=== PATIENT | male | born 1985 | race Caucasian/White ===

== ENCOUNTER 2021-04-05 11:17 | Inpatient (IN) ==
[2021-04-05] MEDS ORDERED: ONDANSETRON INJ 2 MG/ML 2 ML VIAL IV STA (12:15)
[2021-04-05] MEDS ORDERED: ACETAMINOPHEN 500 MG TAB PO STA (12:15)
[2021-04-05] MEDS ORDERED: SODIUM CHLORIDE 0.9% 1000ML 500 ML IV ONE (12:15)
[2021-04-05] MEDS ORDERED: dexAMETHasone**PF** 10 MG/ML VIAL IV ONE (12:15)
--- NOTE | 2021-04-05 12:31 | XRay Report ---
XR chest 1V portable CLINICAL HISTORY: SOB TECHNIQUE: Single frontal radiograph of the chest was obtained. Comparison: Comparison is made to chest one view 04/03/2021 FINDINGS: No lines and tubes are seen. The cardiomediastinal silhouette is normal. Multifocal airspace opacitie s are seen. Lungs are underinflated. No evidence of pleural effusion or pneumothorax. IMPRESSION: Multifocal airspace opacities may reflect atelectasis, pneumonia, and/or aspiration. ACT 112: Negative or not required by law. Electronically signed by: Edwin Mueller M.D. 04/05/2021 12:29 PM
--- NOTE | 2021-04-05 12:48 | Emergency Department Note ---
Impression & Plan Hypoxia, Pneumonia due to COVID-19 virus ED Provider Note NAME: CARLOS MA AGE: 35 SEX: M : 1985 ARRIVES VIA: Ambulance INFORMANT: Patient, ED PROVIDER(S): Frantz Esquivel MD Chief Complaint: Shortness of breath, low oxygen saturation HPI: Patient does present from home as this is the patient's third visit secondary to COVID-19. The patient denies any fevers or chills but has had decreased appetite and associated frontal headache that is achy and nonradiating. Patient denies any recent falls or trauma. The patient does not take any blood thinners. The patient states that when he woke up this morning he went to use the restroom and upon returning to his bed he was fairly short of breath and noticed his oxygen saturation to be 80%. The patient is had mild cough. Patient denies smoking. Patient is not vaccinated for COVID-19 believes he likely contracted it from his girlfriend works at [employer] and had advised him to get vaccinated. Patient denies any prior history of DVT or PE. The patient has any lower extremity swelling. The patient denies any chest pain or abdominal pain. Patient denies loss of taste or smell. ROS: See HPI for pertinent positives and negatives. A total of 10 systems were reviewed and otherwise negative. Past medical history: See below Surgical history: See below Social history: See below Physical Exam: GENERAL: NAD, wearing glasses, wearing a mask, non-toxic. EYE EXAM: Normal conjunctiva. PERRL, no anisocoria and EOM's grossly intact w/o pain. NECK: Supple, no nuchal rigidity, no adenopathy, non-tender. No signs of meningismus. LUNGS: Scant crackles throughout. Normal chest wall mechanics. HEART: NSR, no MRG. ABDOMEN: Abdomen soft, non-tender, normo-active bowel sounds, no masses, no rebound or guarding. BACK: No CVA TTP. SKIN: No rashes and no bruising. UPPER EXTREMITIES: Upper extremities are grossly normal. LOWER EXTREMITIES: Grossly normal, no edema. Negative Homans' sign bilaterally. NEURO EXAM: A&O x3, cranial nerves II-XII grossly intact, normal speech, moves all 4 extremities on command w/o issue. Differential diagnoses: Reactive airway disease, pneumonia, pneumothorax, COPD, CHF, infections, cardiac ischemia, pulmonary embolism, musculoskeletal, gastrointestinal, as well as other pathologies. Course: Patient was seen and evaluated the bedside. Full history physical exam was performed. EKG interpreted by me Sinus bradycardia, rate of 52, normal intervals, normal axis, T wave inversion in lead III not contiguous leads, no obvious ST elevations. Imaging Studies: See Below Cardiac monitoring: An order was placed for continuous cardiac monitoring. The monitor shows a rate of 62 with sinus rhythm. MDM: Patient was seen due to concern for shortness of breath. The patient was seen in a subwait area as there were no beds in which the patient could be seen at the time that he was seen. The patient was initially on 3 L nasal cannula. Patient has a normal white count H&H and platelet count. Kidney function is unremarkable. The patient's troponin is not detectable. Mild elevations in LFTs. The patient did receive dexamethasone 6 mg and IV fluids. On subsequent reassessment patient states that his headache had improved. The patient also received Tylenol and Zofran. Patient is not meningitic or encephalopathic. Chest x-ray does show likely multifocal pneumonia. Given the patient's u nvaccinated status and hypoxemia at home believe the patient would benefit from inpatient treatment at this time. I did speak with the on-call hospitalist and patient was admitted to the medicine service. Critical Care: I have personally spent 36 minutes of critical care time in direct management of this patient. This includes bedside care, interpretation of diagnostic studies, and testing, discussion with consultants, patient, and family members, and other require inpatient management activities. This 36 minutes is in excess of all separately billable procedures. Past Med/Surg History Medical History No significant past medical history Surgical History No significant past surgical history Family History Denies family history of Ovarian cancer Prostate cancer Myocardial infarction Breast cancer Colorectal cancer Social History Smoking Status: Never smoker Second Hand Exposure: No; Do You Dip or Chew Tobacco: No; Tobacco Cessation Education Requested by Patient: No Hx Alcohol Use: No Hx Substance Use: No Preferred Language: Sami Communication Ability: Effective Visual Impairment: No Limitations Hearing Ability: Normal Transfer And Pumphouse Operator Required: No Beliefs That Will Affect Care: None marital status: Current Living Situation: Significant Other Other Information That Helps Us Care for You: No Feels Safe at Home: Yes Safety Concerns: Feels Safe At This Time Assistive Devices: None Allergies Allergies Allergy/AdvReac Type Severity Reaction Status Date / Time bee venom protein (honey bee) Allergy Mild Unknown Unverified 04/03/21 16:27 Home Meds Home Medications Medication Instructions Recorded Confirmed naproxen 250 mg tablet 250 mg PO BID PRN 02/25/19 04/05/21 omeprazole 20 mg tablet,delayed 20 mg PO DAILY 02/25/19 04/05/21 release Previous Rx's Medication Instructions Recorded albuterol sulfate 90 mcg/actuation 2 inh INHALATION Q6H PRN #6.7 g 03/31/21 aerosol inhaler (Ventolin HFA) ondansetron 4 mg disintegrating 4 mg PO Q6H PRN #15 tab 03/31/21 tablet Results & Data (ED) Vital Signs Vital Signs - 24 hr 04/05/21 11:51 Temperature 37.1 C Temperature Source Temporal Artery Scan Pulse Rate 95 H Pulse Rhythm Regular Pulse Strength Normal Respiratory Rate 22 Respiratory Effort / Characteristics Non-Labored Spontaneous Respiratory Depth Normal Respiratory Pattern Regular Blood Pressure 112/76 Blood Pressure Mean 88 Blood Pressure Position Sitting Pulse Oximetry 97 Oxygen Delivery Method Nasal Cannula Oxygen Flow Rate 3 Sepsis Recent Fever Within 48 Hours No Sepsis New/Unexplained Change in Mental Status No Sepsis Action Taken by Nursing No Action Required Home Medications Current Medication List: was personally reviewed by me Laboratory Data Attestation: I reviewed the patient's lab results. Result diagrams: 04/05/21 14:32 04/05/21 14:32 Lab Results 04/05/21 04/05/21 04/05/21 Range/Units 14:32 14:32 14:32 WBC 8.70 (4.8-10.8) K/uL RBC 5.40 (4.7-6.1) M/uL Hgb 15.0 (14.0-18.0) g/dL Hct 45.7 (42-52) % MCV 84.6 (80-100) fL MCH 27.8 (25-34) pg MCHC 32.8 (32-36) g/dL RDW Std Deviation 45.7 (36.4-46.3) fL RDW Coeff of Jaxson 14.6 H (11.5-14.5) % Plt Count 213 (130-400) K/uL MPV 11.2 H (7.4-10.4) fL Immature Gran % (Auto) 0.3 % Neut % (Auto) 82.4 % Lymph % (Auto) 10.6 % Moca % (Auto) 6.0 % Eos % (Auto) 0.6 % Baso % (Auto) 0.1 % Neut # (Auto) 7.17 H (1.4-6.5) K/uL Lymph # (Auto) 0.92 L (1.2-3.4) K/uL Moca # (Auto) 0.52 (0.11-0.59) K/uL Eos # (Auto) 0.05 (0-0.5) K/uL Baso # (Auto) 0.01 (0-0.2) K/uL Immature Gran # (Auto) 0.03 H (0.00-0.02) K/uL PT 10.4 (9.0-12.0) Seconds INR 1.0 (0.9-1.1) APTT 26.5 (21.0-31.0) Seconds PTT Ratio 1.0 Sodium 136 (136-145) mmol/L Potassium 4.1 (3.5-5.1) mmol/L Chloride 105 (98-107) mmol/L Carbon Dioxide 25 (21-32) mmol/L Anion Gap 6.0 (3-11) BUN 8 (7-18) mg/dl Creatinine 0.74 (0.6-1.4) mg/dl Est Cr Clr Drug Dosing 194.3 ml/min Est GFR ( Amer) 139.5 ml/min Est GFR (Non-Af Amer) 120.3 ml/min BUN/Creatinine Ratio 11.0 (10-20) Glucose 109 H (70-99) mg/dl Calcium 9.1 (8.5-10.1) mg/dl Magnesium 2.2 (1.8-2.4) mg/dl Total Bilirubin 0.7 (0.2-1) mg/dl AST 48 H (15-37) U/L ALT 97 H (12-78) Alkaline Phosphatase 67 (45-117) U/L Troponin I < 0.015 (0-0.045) ng/ml C-Reactive Protein 6.57 H (0-0.29) mg/dl Total Protein 7.7 (6.4-8.2) gm/dl Albumin 2.6 L (3.4-5.0) gm/dl Globulin 5.1 H (2.5-4.0) gm/dl Albumin/Globulin Ratio 0.5 L (0.9-2) 04/05/21 Range/Units 14:39 WBC (4.8-10.8) K/uL RBC (4.7-6.1) M/uL Hgb (14.0-18.0) g/dL Hct (42-52) % MCV (80-100) fL MCH (25-34) pg MCHC (32-36) g/dL RDW Std Deviation (36.4-46.3) fL RDW Coeff of Jaxson (11.5-14.5) % Plt Count (130-400) K/uL MPV (7.4-10.4) fL Immature Gran % (Auto) % Neut % (Auto) % Lymph % (Auto) % Moca % (Auto) % Eos % (Auto) % Baso % (Auto) % Neut # (Auto) (1.4-6.5) K/uL Lymph # (Auto) (1.2-3.4) K/uL Moca # (Auto) (0.11-0.59) K/uL Eos # (Auto) (0-0.5) K/uL Baso # (Auto) (0-0.2) K/uL Immature Gran # (Auto) (0.00-0.02) K/uL PT (9.0-12.0) Seconds INR (0.9-1.1) APTT (21.0-31.0) Seconds PTT Ratio Sodium (136-145) mmol/L Potassium (3.5-5.1) mmol/L Chloride (98-107) mmol/L Carbon Dioxide (21-32) mmol/L Anion Gap (3-11) BUN (7-18) mg/dl Creatinine (0.6-1.4) mg/dl Est Cr Clr Drug Dosing ml/min Est GFR ( Amer) ml/min Est GFR (Non-Af Amer) ml/min BUN/Creatinine Ratio (10-20) Glucose (70-99) mg/dl Calcium (8.5-10.1) mg/dl Magnesium (1.8-2.4) mg/dl Total Bilirubin (0.2-1) mg/dl AST (15-37) U/L ALT (12-78) Alkaline Phosphatase (45-117) U/L Troponin I (0-0.045) ng/ml C-Reactive Protein Cancelled (0-0.29) mg/dl Total Protein (6.4-8.2) gm/dl Albumin (3.4-5.0) gm/dl Globulin (2.5-4.0) gm/dl Albumin/Globulin Ratio (0.9-2) Administered Medications Enoxaparin Sodium (Enoxaparin Inj 40 Mg/0.4 Ml Syr) 40 mg SQ HS MELANIE Stop: 05/05/21 23:43 Last Admin: 04/06/21 00:46 Dose: Not Given Documented by: [id number] Discontinued Medications Acetaminophen (Acetaminophen 500 Mg Tab) 1,000 mg PO NOW STA Stop: 04/05/21 12:16 Last Admin: 04/05/21 12:50 Dose: 1,000 mg Documented by: [id number] Dexamethasone Sodium Phosphate (DexamethasonePf 10 Mg/Ml Vial) 6 mg IV NOW ONE Stop: 04/05/21 12:16 Last Admin: 04/05/21 12:50 Dose: 6 mg Documented by: [id number] Sodium Chloride (Nss 1000ml) 500 mls @ 999 mls/hr IV .Q31M ONE Stop: 04/05/21 12:45 Last Infusion: 04/05/21 16:08 Dose: 0 mls/hr Documented by: [id number] Admin: 04/05/21 12:41 Dose: 999 mls/hr Documented by: [id number] Ondansetron HCl (Ondansetron Inj 2 Mg/Ml 2 Ml Vial) 4 mg IV NOW STA Stop: 04/05/21 12:16 Last Admin: 04/05/21 12:49 Dose: 4 mg Documented by: [id number] Imaging Data Radiologist's Impression: Chest X-Ray 04/05/21 11:57 XR chest 1V portable CLINICAL HISTORY: SOB TECHNIQUE: Single frontal radiograph of the chest was obtained. Comparison: Comparison is made to chest one view 04/03/2021 FINDINGS: No lines and tubes are seen. The cardiomediastinal silhouette is normal. Multifocal airspace opacities are seen. Lungs are underinflated. No evidence of pleural effusion or pneumothorax. IMPRESSION: Multifocal airspace opacities may reflect atelectasis, pneumonia, and/or aspiration. ACT 112: Negative or not required by law. Electronically signed by: Edwin Mueller M.D. 04/05/2021 12:29 PM Discharge Plan Visit Data Chief Complaint: Shortness of Breath/Dyspnea ED Provider: Frantz Esquivel Discharge Problem: Hypoxia, Pneumonia due to COVID-19 virus Patient Disposition: Admitted As Inpatient Discharge Instructions Interventions: ED Discharge Assessment Last Done: 04/06/21 01:49
[2021-04-05 14:43] LABS: Basophils # (auto) 0.01 K/uL (0-0.2); Basophils % (auto) 0.1 %; Eosinophils # (auto) 0.05 K/uL (0-0.5); Eosinophils % (auto) 0.6 %; Hematocrit (blood only) 45.7 % (42-52); Immature Granulocytes # (auto) 0.03 K/uL (0.00-0.02); Immature Granulocytes % (auto) 0.3 %; Lymphocytes # (auto) 0.92 K/uL (1.2-3.4); Lymphocytes % (auto) 10.6 %; Mean Corpuscular Hemoglobin 27.8 pg (25-34); Mean Corpuscular Hgb Conc 32.8 g/dL (32-36); Mean Corpuscular Volume 84.6 fL (80-100); Mean Platelet Volume 11.2 fL (7.4-10.4); Monocytes # (auto) 0.52 K/uL (0.11-0.59); Neutrophils # (auto) 7.17 K/uL (1.4-6.5); Neutrophils % (auto) 82.4 %; Platelet Count 213 K/uL (130-400); RDW Coefficient of Variation 14.6 % (11.5-14.5); RDW Standard Deviation 45.7 fL (36.4-46.3)
[2021-04-05 15:02] LABS: Partial Thromboplastin Time 26.5 Seconds (21.0-31.0); Prothrombin Time 10.4 Seconds (9.0-12.0)
[2021-04-05 15:10] LABS: Albumin Level 2.6 gm/dl (3.4-5.0); Blood Urea Nitrogen 8 mg/dl (7-18); Calcium 9.1 mg/dl (8.5-10.1); Carbon Dioxide 25 mmol/L (21-32); Chloride 105 mmol/L (98-107); Creatinine Clr Calc Pharmacy 194.3 ml/min; Est GFR (African American) 139.5 ml/min; Est GFR (Non-African American) 120.3 ml/min; Glucose 109 mg/dl (70-99); Magnesium 2.2 mg/dl (1.8-2.4); Potassium 4.1 mmol/L (3.5-5.1); Sodium 136 mmol/L (136-145)
[2021-04-05 15:25] LABS: Alanine Aminotransferase 97 (12-78); Albumin Globulin Ratio 0.5 (0.9-2); Alkaline Phosphatase 67 U/L (45-117); Aspartate Aminotransferase 48 U/L (15-37); Bilirubin,Total 0.7 mg/dl (0.2-1); Globulin 5.1 gm/dl (2.5-4.0); Total Protein 7.7 gm/dl (6.4-8.2); Troponin I < 0.015 ng/ml (0-0.045)
--- NOTE | 2021-04-05 16:11 | History & Physical Report ---
Date of Service April 05, 2021 Assessment & Plan (1) Pneumonia due to COVID-19 virus: (2) Hypoxia: Plan: -Admit to [facility] -Patient presenting from home with reports of worsening shortness of breath and hypoxia. Symptoms have been present since 03/23. Patient tested positive for COVID-19 on 03/28 via home test and also in the ED on 03/31. -Patient currently requiring 3 L of oxygen via nasal cannula -CXR consistent with COVID-19 pneumonia -Check procalcitonin and CRP -S/p IV dexamethasone 6 mg in the ED, continue with IV dexamethasone 6 mg daily. Given long duration of symptoms, patient currently does not meet criteria for remdesivir. Also given minimal oxygen requirement does not meet criteria for immunomodulator therapy. -Continue supportive care with incentive spirometer, flutter valve, albuterol inhaler, encourage self proning (3) DVT prophylaxis: Plan: -SQ Lovenox History of Present Illness Chief Complaint: Shortness of breath Primary Care Provider: Eddi Shrestha DO 35-year-old male without significant past medical or surgical history who presents the ED for evaluation of shortness of breath. Patient reports he developed cough and shortness of breath on 03/23. Tested positive for COVID-19 on 03/28. Patient reports worsening symptoms since that time. He reports shortness of breath with minimal exertion. Patient has a home pulse oximeter and reports that with ambulation today his oxygen saturations were 80%. His cough has been productive for white/clear sputum. He is unsure if he has been running a fever. No chest pain. Denies lightheadedness, dizziness, diaphoresis, syncopal events. He has had a very poor appetite and intermittent nausea however no vomiting, abdominal pain, diarrhea. Denies urinary symptoms. In the ED, patient is requiring 3 L of oxygen via nasal cannula. CXR is showing multifocal pneumonia. Labs are unremarkable. Patient was given Tylenol, IV dexamethasone 6 mg, IV Zofran, IVF. Allergies Allergy/AdvReac Type Severity Reaction Status Date / Time bee venom protein (honey bee) Allergy Mild Unknown Unverified 04/03/21 16:27 Home Medications Medication Instructions Recorded Confirmed Type naproxen 250 mg tablet 250 mg PO BID PRN 02/25/19 04/05/21 History omeprazole 20 mg tablet,delayed 20 mg PO DAILY 02/25/19 04/05/21 History release albuterol sulfate 90 mcg/actuation 2 inh INHALATION Q6H PRN #6.7 g 03/31/21 04/05/21 Rx aerosol inhaler (Ventolin HFA) ondansetron 4 mg disintegrating 4 mg PO Q6H PRN #15 tab 03/31/21 04/05/21 Rx tablet Past Med/Surg History Medical History No significant past medical history Surgical History No significant past surgical history Family History Denies family history of Ovarian cancer Prostate cancer Myocardial infarction Breast cancer Colorectal cancer Social History Smoking Status: Never smoker Hx Alcohol Use: No Preferred Language: [place] Visual Impairment: No Limitations Hearing Ability: Normal marital status: Feels Safe at Home: Yes Review of Systems Review of Systems: ROS per HPI, all other systems reviewed and negative Physical Exam Constitutional: WD/WN, vitals as above + obese Eyes: PERRL, conjunctivae normal, anicteric sclerae ENMT: external ear and nose normal, oropharynx normal Respiratory: normal respiratory effort; no respiratory distress Auscultation: + diminished lung sounds Cardiovascular: Rate/Rhythm: regular rate and regular rhythm Vessels: normal peripheral pulses Extremities: no edema Gastrointestinal (Abdomen): normal bowel sounds, soft, nontender, no hepatosplenomegaly Musculoskeletal: no cyanosis or clubbing, extremities motor strength 5/5 Skin: no rashes, warm and dry Neurologic: PERRL, EOMI, accommodation nl, no face palsy, no dysarthria Psychiatric: A+Ox3, euthymic affect Results & Data Results & Data ([facility]) Vital Signs (Past 12 Hours) Vital Signs Temp Pulse Resp BP Pulse Ox 04/05/21 11:51 37.1 C 95 H 22 112/76 97 Laboratory Results Short CBC 04/05/21 Range/Units 14:32 WBC 8.70 (4.8-10.8) K/uL Hgb 15.0 (14.0-18.0) g/dL Hct 45.7 (42-52) % Plt Count 213 (130-400) K/uL BMP 04/05/21 14:32 Sodium 136 Potassium 4.1 Chloride 105 Carbon Dioxide 25 BUN 8 Creatinine 0.74 Glucose 109 H Calcium 9.1 Cardiac Enzymes 04/05/21 Range/Units 14:32 Troponin I < 0.015 (0-0.045) ng/ml Liver Function 04/05/21 Range/Units 14:32 Total Bilirubin 0.7 (0.2-1) mg/dl AST 48 H (15-37) U/L ALT 97 H (12-78) Alkaline Phosphatase 67 (45-117) U/L Albumin 2.6 L (3.4-5.0) gm/dl Diagnostic Findings Chest X-Ray 04/05/21 11:57 XR chest 1V portable CLINICAL HISTORY: SOB TECHNIQUE: Single frontal radiograph of the chest was obtained. Comparison: Comparison is made to chest one view 04/03/2021 FINDINGS: No lines and tubes are seen. The cardiomediastinal silhouette is normal. Multifocal airspace opacities are seen. Lungs are underinflated. No evidence of pleural effusion or pneumothorax. IMPRESSION: Multifocal airspace opacities may reflect atelectasis, pneumonia, and/or aspiration. ACT 112: Negative or not required by law. Electronically signed by: Edwin Mueller M.D. 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
[2021-04-05 16:44] LABS: C Reactive Protein 6.57 mg/dl (0-0.29)
[2021-04-05] MEDS ORDERED: ALBUTEROL HFA 8 GM INHALER INH PRN (23:44)
[2021-04-05] MEDS ORDERED: ACETAMINOPHEN 325 MG TAB PO PRN (23:44)
[2021-04-05] MEDS ORDERED: ONDANSETRON INJ 2 MG/ML 2 ML VIAL IV PRN (23:44)
[2021-04-06] MEDS: ENOXAPARIN INJ 40 MG/0.4 ML SYR SQ SCH ×2 (00:46→19:24)
[2021-04-06 07:14] LABS: Basophils # (auto) 0.01 K/uL (0-0.2); Basophils % (auto) 0.1 %; Hematocrit (blood only) 44.4 % (42-52); Hemoglobin 14.7 g/dL (14.0-18.0); Immature Granulocytes # (auto) 0.03 K/uL (0.00-0.02); Immature Granulocytes % (auto) 0.4 %; Lymphocytes # (auto) 1.09 K/uL (1.2-3.4); Lymphocytes % (auto) 14.3 %; Mean Corpuscular Hemoglobin 27.9 pg (25-34); Mean Corpuscular Hgb Conc 33.1 g/dL (32-36); Mean Corpuscular Volume 84.3 fL (80-100); Mean Platelet Volume 11.6 fL (7.4-10.4); Monocytes # (auto) 0.69 K/uL (0.11-0.59); Neutrophils # (auto) 5.81 K/uL (1.4-6.5); Neutrophils % (auto) 76.2 %; Platelet Count 231 K/uL (130-400); RDW Coefficient of Variation 14.4 % (11.5-14.5); RDW Standard Deviation 44.5 fL (36.4-46.3); Red Blood Count 5.27 M/uL (4.7-6.1); White Blood Count 7.63 K/uL (4.8-10.8)
[2021-04-06 07:35] LABS: Albumin Level 2.5 gm/dl (3.4-5.0); BUN Creatinine Ratio 16.1 (10-20); Calcium 9.5 mg/dl (8.5-10.1); Creatinine Clr Calc Pharmacy 217.8 ml/min; Est GFR (African American) 146.2 ml/min; Est GFR (Non-African American) 126.1 ml/min; Magnesium 2.4 mg/dl (1.8-2.4); Potassium 4.2 mmol/L (3.5-5.1)
[2021-04-06 07:38] LABS: Albumin Globulin Ratio 0.5 (0.9-2); Bilirubin,Total 0.8 mg/dl (0.2-1); C Reactive Protein 7.18 mg/dl (0-0.29); Globulin 5.2 gm/dl (2.5-4.0); Phosphorus 3.7 mg/dl (2.5-4.9); Total Protein 7.7 gm/dl (6.4-8.2)
[2021-04-06] MEDS: PANTOprazole 40 MG TAB PO SCH (08:56)
[2021-04-06] MEDS: dexAMETHasone 6 MG in SYRINGE 0 ML IV SCH (10:25)
--- NOTE | 2021-04-06 11:40 | Electrocardiogram Report ---
Test Reason : Blood Pressure : / mmHG Vent. Rate : 052 BPM Atrial Rate : 052 BPM P-R Int : 146 ms QRS Dur : 104 ms QT Int : 450 ms P-R-T Axes : 014 002 013 degrees QTc Int : 418 ms Sinus bradycardia RSR' or QR pattern in V1 suggests right ventricular conduction delay Otherwise normal ECG When compared with ECG of 03-APR-2021 13:14, Vent. rate has decreased BY 26 BPM Confirmed by Nawaf May ([id number]) on 04/06/2021 11:39:28 AM Referred By: REFERRED SELF Confirmed By:Nawaf May
[2021-04-06] MEDS ORDERED: FUROSEMIDE 40 MG/4 ML VIAL IV ONE (13:46)
--- NOTE | 2021-04-06 16:23 | Hospitalist Progress Note ---
Date of Service April 06, 2021 Assessment & Plan (1) Pneumonia due to COVID-19 virus: Plan: -Not vaccinated for COVID-19 -Patient presenting from home with reports of worsening shortness of breath and hypoxia. Symptoms have been present since 03/23. Patient tested positive for COVID-19 on 03/28 via home test and also in the ED on 03/31. -Patient currently requiring 3 L of oxygen via nasal cannula -CXR consistent with COVID-19 pneumonia -Check procalcitonin-less than 0.05 and CRP-7.18 -S/p IV dexamethasone 6 mg in the ED, continue with IV dexamethasone 6 mg daily. Given long duration of symptoms, patient currently does not meet criteria for remdesivir. Also given minimal oxygen requirement does not meet criteria for immunomodulator therapy. -Continue supportive care with incentive spirometer, flutter valve, albuterol inhaler, encourage self proning -Clinically better and has been requiring up to 1 L of oxygen to maintain saturation at rest -Advised to ambulate in the room -We will do it to a stable O2 saturation test tomorrow and if stable can be sent home (2) Hypoxia: Plan: As above (3) DVT prophylaxis: Plan: -SQ Lovenox Admission and Anticipated Discharge Date Admission Date: April 05, 2021 Subjective 04/06/2021 The patient was seen and examined in the Covid unit He has been doing a little better and requiring about 1 L of oxygen to maintain saturation Remains generally weak-was advised to move around in the room Review of Systems Review of Systems: All systems reviewed and are unremarkable except as noted below Respiratory: Minimal shortness of breath at rest Physical Exam Physical Exam: Lying in bed comfortably Constitutional: well developed, well nourished and + morbidly obese Eyes: PERRL, conjunctivae normal, anicteric sclerae ENMT: external ear and nose normal, oropharynx normal Neck: trachea midline, no thyromegaly Respiratory: + respiratory distress (Minimal shortness of breath at rest) Auscultation: + diminished lung sounds Cardiovascular: Rate/Rhythm: regular rate and regular rhythm; not tachycardic Heart Sounds: normal S1 and normal S2; no murmur Extremities: + edema (Trace to 1+ edema bilaterally) Gastrointestinal (Abdomen): Inspection/Auscultation: normal bowel sounds; abdomen not distended Percussion/Palpation: abdomen soft; abdomen nontender Musculoskeletal: No acute arthritis involving any joint Neurologic: Alert, awake and oriented x3. No focal sensory or no motor deficit appreciated Lymphatic: no cervical or axillary lymphadenopathy Results & Data Results & Data ([facility]) Vital Signs (Past 12 Hours) Vital Signs Temp Pulse Resp BP Pulse Ox 04/06/21 15:24 36.7 C 79 18 117/68 93 04/06/21 14:06 94 04/06/21 07:19 36.5 C 82 18 133/84 95 Laboratory Results Short CBC 04/06/21 Range/Units 06:18 WBC 7.63 (4.8-10.8) K/uL Hgb 14.7 (14.0-18.0) g/dL Hct 44.4 (42-52) % Plt Count 231 (130-400) K/uL BMP 04/06/21 06:18 Sodium 138 Potassium 4.2 Chloride 107 Carbon Dioxide 24 BUN 11 Creatinine 0.66 Glucose 129 H Calcium 9.5 Liver Function 04/06/21 Range/Units 06:18 Total Bilirubin 0.8 (0.2-1) mg/dl AST 50 H (15-37) U/L ALT 106 H (12-78) Alkaline Phosphatase 67 (45-117) U/L Albumin 2.5 L (3.4-5.0) gm/dl Medications Administered Current Inpatient Medications Acetaminophen (Acetaminophen 325 Mg Tab) 650 mg PO Q4H PRN PRN Reason: pain/fever Stop: 05/05/21 23:43 Albuterol (Albuterol Hfa 8 Gm Inhaler) 2 puffs INH Q4H PRN PRN Reason: shortness of breath Stop: 05/05/21 23:43 Enoxaparin Sodium (Enoxaparin Inj 40 Mg/0.4 Ml Syr) 40 mg SQ HS MELANIE Stop: 05/05/21 23:43 Last Admin: 04/06/21 00:46 Dose: Not Given Documented by: Dexamethasone 6 mg/ Syringe 1.5 mls @ 1 mls/min IV DAILY MELANIE Stop: 04/16/21 08:59 Last Admin: 04/06/21 10:25 Dose: 1 mls/min Documented by: Ondansetron HCl (Ondansetron Inj 2 Mg/Ml 2 Ml Vial) 4 mg IV Q6H PRN PRN Reason: Nausea Stop: 05/05/21 23:43 Pantoprazole Sodium (Pantoprazole 40 Mg Tab) 40 mg PO DAILY MELANIE Stop: 05/06/21 08:59 Last Admin: 04/06/21 08:56 Dose: 40 mg Documented by:
[2021-04-07 07:29] LABS: BUN Creatinine Ratio 24.9 (10-20); C Reactive Protein 2.54 mg/dl (0-0.29); Calcium 9.4 mg/dl (8.5-10.1); Creatinine Clr Calc Pharmacy 184.3 ml/min; Est GFR (African American) 136.5 ml/min; Est GFR (Non-African American) 117.8 ml/min; Potassium 3.9 mmol/L (3.5-5.1)
[2021-04-07] MEDS: dexAMETHasone 6 MG in SYRINGE 0 ML IV SCH (09:31)
[2021-04-07] MEDS: PANTOprazole 40 MG TAB PO SCH (09:31)
--- NOTE | 2021-04-07 13:42 | Hospitalist Progress Note ---
Date of Service April 07, 2021 Assessment & Plan (1) Pneumonia due to COVID-19 virus: Plan: -Not vaccinated for COVID-19 -Patient presenting from home with reports of worsening shortness of breath and hypoxia. Symptoms have been present since 03/23. Patient tested positive for COVID-19 on 03/28 via home test and also in the ED on 03/31. -Patient currently requiring 3 L of oxygen via nasal cannula -CXR consistent with COVID-19 pneumonia -Check procalcitonin-less than 0.05 and CRP-7.18 -S/p IV dexamethasone 6 mg in the ED, continue with IV dexamethasone 6 mg daily. Given long duration of symptoms, patient currently does not meet criteria for remdesivir. Also given minimal oxygen requirement does not meet criteria for immunomodulator therapy. -Continue supportive care with incentive spirometer, flutter valve, albuterol inhaler, encourage self proning -Clinically better and has been requiring up to 1 L of oxygen to maintain saturation at rest -Advised to ambulate in the room -Has been feeling much better and does not require any oxygen to maintain saturation -His CRP is down to 2.54 and he passed the 2 step O2 saturation test -He will be discharged home this afternoon (2) Hypoxia: Plan: As above (3) DVT prophylaxis: Plan: -SQ Lovenox Admission and Anticipated Discharge Date Admission Date: April 05, 2021 Subjective 04/06/2021 The patient was seen and examined in the Covid unit He has been doing a little better and requiring about 1 L of oxygen to maintain saturation Remains generally weak-was advised to move around in the room 04/07/2021 The patient was seen and examined in the Covid room He has been feeling much better and denies any symptoms at rest He has minimal cough but no shortness of breath at rest or with exertion He passed the 2 step O2 saturation test and does not require any oxygen at rest or with ambulation He will be discharged home this afternoon Review of Systems Review of Systems: All systems reviewed and are unremarkable except as noted below Respiratory: No shortness of breath at rest Physical Exam Physical Exam: Lying in bed comfortably Constitutional: well developed, well nourished and + morbidly obese Eyes: PERRL, conjunctivae normal, anicteric sclerae ENMT: external ear and nose normal, oropharynx normal Neck: trachea midline, no thyromegaly Respiratory: + respiratory distress (Minimal shortness of breath at rest) Auscultation: + diminished lung sounds Cardiovascular: Rate/Rhythm: regular rate and regular rhythm; not tachycardic Heart Sounds: normal S1 and normal S2; no murmur Extremities: + edema (Trace to 1+ edema bilaterally) Gastrointestinal (Abdomen): Inspection/Auscultation: normal bowel sounds; abdomen not distended Percussion/Palpation: abdomen soft; abdomen nontender Musculoskeletal: No acute arthritis in any joint Neurologic: Alert, awake and oriented x3. No focal sensory or no motor deficit appreciated Lymphatic: no cervical or axillary lymphadenopathy Results & Data Results & Data ([facility]) Vital Signs (Past 12 Hours) Vital Signs Temp Pulse Pulse Pulse Pulse Resp Resp 04/07/21 09:14 122 H 116 H 90 20 04/07/21 07:55 36.7 C 70 20 Resp Resp BP Pulse Ox Pulse Ox Pulse Ox Pulse Ox 04/07/21 09:14 18 18 91 92 93 04/07/21 07:55 109/68 91 Laboratory Results [facility] 04/07/21 06:07 Sodium 140 Potassium 3.9 Chloride 107 Carbon Dioxide 27 BUN 19 H D Creatinine 0.78 Glucose 119 H Calcium 9.4 Medications Administered Current Inpatient Medications Acetaminophen (Acetaminophen 325 Mg Tab) 650 mg PO Q4H PRN PRN Reason: pain/fever Stop: 05/05/21 23:43 Albuterol (Albuterol Hfa 8 Gm Inhaler) 2 puffs INH Q4H PRN PRN Reason: shortness of breath Stop: 05/05/21 23:43 Enoxaparin Sodium (Enoxaparin Inj 40 Mg/0.4 Ml Syr) 40 mg SQ HS [facility] Stop: 05/05/21 23:43 Last Admin: 04/06/21 19:24 Dose: 40 mg Documented by: Dexamethasone 6 mg/ Syringe 1.5 mls @ 1 mls/min IV DAILY MELANIE Stop: 04/16/21 08:59 Last Admin: 04/07/21 09:31 Dose: 1 mls/min Documented by: Ondansetron HCl (Ondansetron Inj 2 Mg/Ml 2 Ml Vial) 4 mg IV Q6H PRN PRN Reason: Nausea Stop: 05/05/21 23:43 Pantoprazole Sodium (Pantoprazole 40 Mg Tab) 40 mg PO DAILY [facility] Stop: 05/06/21 08:59 Last Admin: 04/07/21 09:31 Dose: 40 mg Documented by:
--- NOTE | 2021-04-08 07:54 | Discharge Summary ---
Date of Service April 08, 2021 Admission HPI Per Admitting Provider 35-year-old male without significant past medical or surgical history who presents the ED for evaluation of shortness of breath. Patient reports he developed cough and shortness of breath on 03/23. Tested positive for COVID-19 on 03/28. Patient reports worsening symptoms since that time. He reports shortness of breath with minimal exertion. Patient has a home pulse oximeter and reports that with ambulation today his oxygen saturations were 80%. His cough has been productive for white/clear sputum. He is unsure if he has been running a fever. No chest pain. Denies lightheadedness, dizziness, diaphoresis , syncopal events. He has had a very poor appetite and intermittent nausea however no vomiting, abdominal pain, diarrhea. Denies urinary symptoms. In the ED, patient is requiring 3 L of oxygen via nasal cannula. CXR is showing multifocal pneumonia. Labs are unremarkable. Patient was given Tylenol, IV dexamethasone 6 mg, IV Zofran, IVF. Admission Exam Per Admitting Provider Constitutional: WD/WN, vitals as above + obese Eyes: PERRL, conjunctivae normal, anicteric sclerae ENMT: external ear and nose normal, oropharynx normal Respiratory: normal respiratory effort; no respiratory distress Auscultation: + diminished lung sounds Cardiovascular: Rate/Rhythm: regular rate and regular rhythm Vessels: normal peripheral pulses Extremities: no edema Gastrointestinal (Abdomen): normal bowel sounds, soft, nontender, no hepatosplenomegaly Musculoskeletal: no cyanosis or clubbing, extremities motor strength 5/5 Skin: no rashes, warm and dry Neurologic: PERRL, EOMI, accommodation nl, no face palsy, no dysarthria Psychiatric: A+Ox3, euthymic affect Principal Diagnosis Pneumonia due to COVID-19 virus. Discharge Exam Lying in bed comfortably Constitutional well developed, well nourished and + morbidly obese Eyes PERRL, conjunctivae normal, anicteric sclerae ENMT external ear and nose normal, oropharynx normal Neck trachea midline, no thyromegaly Respiratory + respiratory distress (Minimal shortness of breath at rest) Auscultation: + diminished lung sounds Cardiovascular Rate/Rhythm: regular rate and regular rhythm; not tachycardic Heart Sounds: normal S1 and normal S2; no murmur Extremities: + edema (Trace to 1+ edema bilaterally) Gastrointestinal (Abdomen) Inspection/Auscultation: normal bowel sounds; abdomen not distended Percussion/Palpation: abdomen soft; abdomen nontender Lymphatic no cervical or axillary lymphadenopathy Discharge Data Allergies Allergy/AdvReac Type Severity Reaction Status Date / Time bee venom protein (honey bee) Allergy Mild Unknown Unverified 04/03/21 16:27 Consultations 04/05/21 15:20 ED Decision to Admit Stat Hospital Course (1) Pneumonia due to COVID-19 virus: -Not vaccinated for COVID-19 -Patient presenting from home with reports of worsening shortness of breath and hypoxia. Symptoms have been present since 03/23. Patient tested positive for COVID-19 on 03/28 via home test and also in the ED on 03/31. -Patient currently requiring 3 L of oxygen via nasal cannula -CXR consistent with COVID-19 pneumonia -Check procalcitonin-less than 0.05 and CRP-7.18 -S/p IV dexamethasone 6 mg in the ED, continue with IV dexamethasone 6 mg daily. Given long duration of symptoms, patient currently does not meet criteria for remdesivir. Also given minimal oxygen requirement does not meet criteria for immunomodulator therapy. -Continue supportive care with incentive spirometer, flutter valve, albuterol inhaler, encourage self proning -Clinically better and has been requiring up to 1 L of oxygen to maintain saturation at rest -Advised to ambulate in the room -Has been feeling much better and does not require any oxygen to maintain saturation -His CRP is down to 2.54 and he passed the 2 step O2 saturation test -He will be discharged home this afternoon (2) Hypoxia: As above (3) DVT prophylaxis: -SQ Lovenox Total Time Total Time Spent Total Time Spent (In Minutes): 35 minutes Discharge Plan Discharge Items Patient Disposition: Home - Self-Care Reason For Visit: COVID PNEUMONIA Discharge Diagnosis: Pneumonia due to COVID-19 virus. Condition on Discharge: Good Activity: Resume your previous activity Non-emergency contact: Primary Care Provider Call non-emergency contact if: you have any medication questions and your symptoms worsen Follow-up/Referrals: Eddi Shrestha DO [Primary Care Provider] - (Date & Time 04/12/2021 11:20 AM Provider Eddi Shrestha DO Department [facility] ) Diet: Regular Addtl Attending Provider Instructions: Please take it easy for the next few days Maintain home quarantine until 04/10/2021 as per guidelines below: Finish the course of your dexamethasone He can have the vaccine after april provided you not having any symptoms Please give appointment with your PCP Home Isolation COVID-19 Instructions The following information about Home Isolation is from the CDC Website: https://www.cdc.gov/coronavirus/2019-ncov/hcp/mgpxhnwg-kxznoox-xfulbe.html Stay home except to get medical care People who are mildly ill with COVID-19 are able to isolate at home during their illness. You should restrict activities outside your home, except for getting medical care. Do not go to work, school, or public areas. Avoid using public transportation, ride-sharing, or taxis. Separate yourself from other people and animals in your home People: As much as possible, you should stay in a specific room and away from other people in your home. Also, you should use a separate bathroom, if available. Animals: You should restrict contact with pets and other animals while you are sick with COVID-19, just like you would around other people. Although there have not been reports of pets or other animals becoming sick with COVID-19, it is still recommended that people sick with COVID-19 limit contact with animals until more information is known about the virus. When possible, have another member of your household care for your animals while you are sick. If you are sick with COVID-19, avoid contact with your pet, including petting, snuggling, being kissed or licked, and sharing food. If you must care for your pet or be around animals while you are sick, wash your hands before and after you interact with pets and wear a face mask. Call ahead before visiting your doctor If you have a medical appointment, call the healthcare provider and tell them that you have or may have COVID-19. This will help the healthcare providers office take steps to keep other people from getting infected or exposed. Wear a face mask You should wear a face mask when you are around other people (e.g., sharing a room or vehicle) or pets and before you enter a healthcare providers office. If you are not able to wear a face mask (for example, because it causes trouble breathing), then people who live with you should not stay in the same room with you, or they should wear a face mask if they enter your room. Cover your coughs and sneezes Cover your mouth and nose with a tissue when you cough or sneeze. Throw used tissues in a lined trash can. Immediately wash your hands with soap and water for at least 20 seconds or, if soap and water are not available, clean your hands with an alcohol-based hand area field person that contains at least 60% alcohol. Clean your hands often Wash your hands often with soap and water for at least 20 seconds, especially after blowing your nose, coughing, or sneezing; going to the bathroom; and before eating or preparing food. If soap and water are not readily available, use an alcohol-based hand area field person with at least 60% alcohol, covering all surfaces of your hands and rubbing them together until they feel dry. Soap and water are the best option if hands are visibly dirty. Avoid touching your eyes, nose, and mouth with unwashed hands. Avoid sharing personal household items You should not share dishes, drinking glasses, cups, eating utensils, towels, or bedding with other people or pets in your home. After using these items, they should be washed thoroughly with soap and water. Clean all high-touch surfaces everyday High touch surfaces include counters, tabletops, doorknobs, bathroom fixtures, toilets, phones, keyboards, tablets, and bedside tables. Also, clean any surfaces that may have blood, stool, or body fluids on them. Use a household cleaning spray or wipe, according to the label instructions. Labels contain instructions for safe and effective use of the cleaning product including prec autions you should take when applying the product, such as wearing gloves and making sure you have good ventilation during use of the product. Monitor your symptoms Seek prompt medical attention if your illness is worsening (e.g., difficulty breathing).Beforeseeking care, call your healthcare provider and tell them that you have, or are being evaluated for, COVID-19. Put on a face mask before you enter the facility. These steps will help the healthcare providers office to keep other people in the office or waiting room from getting infected or exposed. Ask your healthcare provider to call the local or state health department. Persons who are placed under active monitoring or facilitated self- monitoring should follow instructions provided by their local health department or occupational health professionals, as appropriate. When working with your local health department check their available hours. If you have a medical emergency and need to call 911, notify the dispatch personnel that you have, or are being evaluated for COVID-19. If possible, put on a face mask before emergency medical services arrive. Discontinuing home isolation Patients with confirmed COVID-19 should remain under home isolation precautions until the risk of secondary transmission to others is thought to be low. The decision to discontinue home isolation precautions should be made on a [id number] basis, in consultation with healthcare providers and state and local health departments. Pending Studies at Discharge: No Stand-Alone Forms: [facility] PulseOn, Smoking Cessation Medications and DC Order Prescriptions: New dexamethasone 6 mg tablet 6 mg PO DAILY Qty: 7 RF: 0 dextromethorphan-guaifenesin [Mucus Relief ER DM-MAX] 60-1,200 mg tablet extended release 12 hr 1 tab PO BID PRN (Reason: cough) Qty: 20 RF: 0 Continued naproxen 250 mg tablet 250 mg PO BID PRN (Reason: Pain) RF: 0 omeprazole 20 mg tablet,delayed release (DR/EC) 20 mg PO DAILY RF: 0 albuterol sulfate [Ventolin HFA] 90 mcg/actuation HFA aerosol inhaler 2 inh inhalation Q6H PRN (Reason: shortness of breath or wheezing) Qty: 6.7 RF: 0 ondansetron 4 mg tablet,disintegrating 4 mg PO Q6H PRN (Reason: nausea and vomiting) Qty: 15 RF: 0 Discharge Orders: Discharge Order (Routine); Ordered 04/07/21 Ordered By: Anna Nino Admission Data Admit Date/Time: 04/05/21 15:23 Attending Provider: Anna Nino Admit Provider: Anna Nino Primary Care Provider: Eddi Shrestha Other Providers: Anna Nino Other Interventions: Discharge Summary Assessment (RN) Last Done: 04/07/21 14:39
== END 2021-04-07 15:17 | disposition home or self-care (01) | DRG 177 ==
LOC: ED 11:17 → EDINP 15:23 → 2W 23:28

== ENCOUNTER 2021-05-11 21:39 | Inpatient (IN) ==
[2021-05-11] MEDS ORDERED: ALBUT/IPRATROP 3MG/0.5MG NEB 3 ML VIAL NEB STA (21:56)
[2021-05-11] MEDS ORDERED: dexAMETHasone**PF** 10 MG/ML VIAL IV ONE (21:56)
--- NOTE | 2021-05-11 22:05 | Emergency Department Note ---
History of Present Illness General Chief complaint: Shortness of Breath/Dyspnea Stated complaint: SOB, RIB PAIN RADIATING TO CHEST, HYPOXIC Time Seen by Provider: 05/11/21 21:54 History of Present Illness Maximum Pain Intensity: 0 This is a 35-year-old male presenting to the emergency department for evaluation of shortness of breath and weakness worsening over the past day. The patient was COVID positive last month and this did require overnight stay in the hospital. The patient was ultimately discharged and has been doing well for several weeks. The patient attempted to follow-up with his primary care physician last week as he had developed some pain in his right leg behind the right knee, but was not able to be seen. He did get his first Covid vaccine shot on 05/08/2021. The patient states that he noticed this afternoon he was very short of breath when getting into his truck and loading his dogs out. The patient does have a home pulse oximeter from having Covid, and check this at home. His O2 saturation was between 78 and 85% at best. He has not had any recurrent fevers. He feels very weak and tired. No recent travel history. He rates his overall discomfort a 5/10. Home Medications Medication Instructions Recorded Confirmed Type naproxen 250 mg tablet 250 mg PO BID PRN 02/25/19 05/11/21 History omeprazole 20 mg tablet,delayed 20 mg PO DAILY 02/25/19 05/11/21 History release albuterol sulfate 90 mcg/actuation 2 inh INHALATION Q6H PRN #6.7 g 03/31/21 05/11/21 Rx aerosol inhaler (Ventolin HFA) ondansetron 4 mg disintegrating 4 mg PO Q6H PRN #15 tab 03/31/21 05/11/21 Rx tablet dextromethorphan-guaifenesin ER 60 1 tab PO BID PRN #20 tab 04/07/21 05/11/21 Rx mg-1,200 mg tab,extend release,12hr (Mucus Relief ER DM-MAX) Allergies Allergy/AdvReac Type Severity Reaction Status Date / Time bee venom protein (honey bee) Allergy Intermediate COLD Verified 05/11/21 22:48 SWEATS/VOMITING Past Med/Surg History Medical History (Updated 05/12/21 @ 04:54 by Juan M Kaiser PA-C) No significant past medical history Pneumonia due to COVID-19 virus Pulmonary embolism Surgical History No significant past surgical history Family History Denies family history of Ovarian cancer Prostate cancer Myocardial infarction Breast cancer Colorectal cancer Social History Smoking Status: Never smoker Second Hand Exposure: No; Hx Alcohol Use: No Hx Substance Use: No Preferred Language: [place] Zealander Communication Ability: Effective Visual Impairment: No Limitations Hearing Ability: Normal Cloth Shrinker Required: No Beliefs That Will Affect Care: None marital status: Current Living Situation: Significant Other Feels Safe at Home: Yes Assistive Devices: Glasses Review of Systems A total of 10 systems reviewed and were otherwise negative Physical Exam Vital Signs Vital Signs - 24 hr 05/11/21 21:42 05/11/21 21:55 05/11/21 23:08 Temperature 36.4 C L Temperature Source Temporal Artery Scan Pulse Rate 135 H 117 H Pulse Rate [Apical] 117 H Pulse Rhythm [Apical] Regular Respiratory Rate 18 24 Respiratory Effort / Characteristics Short of Breath Respiratory Depth Normal Blood Pressure 157/90 H Blood Pressure [Right Arm] 125/92 Blood Pressure Mean 112 Blood Pressure Mean [Right Arm] 103 Blood Pressure Position Sitting Pulse Oximetry 88 L 95 99 Oxygen Delivery Method Room Air Nasal Cannula Nasal Cannula Oxygen Flow Rate 3 3 Sepsis Recent Fever Within 48 Hours No Sepsis New/Unexplained Change in Mental Status No Sepsis Action Taken by Nursing No Action Required 05/12/21 03:03 Temperature Temperature Source Pulse Rate Pulse Rate [Apical] 110 H Pulse Rhythm [Apical] Respiratory Rate 29 H Respiratory Effort / Characteristics Respiratory Depth Blood Pressure Blood Pressure [Right Arm] 134/87 Blood Pressure Mean Blood Pressure Mean [Right Arm] 102 Blood Pressure Position Pulse Oximetry 97 Oxygen Delivery Method Nasal Cannula Oxygen Flow Rate 3 Sepsis Recent Fever Within 48 Hours Sepsis New/Unexplained Change in Mental Status Sepsis Action Taken by Nursing VITALS: Vitals are noted on the nurse's note and reviewed by myself. Vital signs with tachycardia and hypoxia. GENERAL: White male who is quite short of breath. He is not able to speak in full sentences NECK: Supple without nuchal rigidity. No lymphadenopathy. No thyromegaly. Cervical spine is nontender. HEART: Tachycardic rate and rhythm without murmurs gallops or rubs. LUNGS: Scattered rhonchi throughout. Lung sounds diminished throughout. ABDOMEN: Positive normal bowel sounds x 4. Soft, nontender, without masses or organomegaly. No guarding or rebound tenderness. MUSCULOSKELETAL: No muscle atrophy, erythema, or edema noted. Full range of motion in all extremities. Course Administered Medications Heparin Sodium/Dextrose (Heparin Sodium/Dextrose) 25,000 units in 500 mls @ 0.02 mls/hr IV .Q24H MELANIE; Protocol Stop: 06/11/21 03:44 Last Admin: 05/12/21 03:37 Dose: 1,700 units/hr, 34 mls/hr Documented by: [id number] Cosigned by: [id number] Discontinued Medications Albuterol (Albut/Ipratrop 3mg/0.5mg Neb 3 Ml Vial) 3 ml NEB NOW STA; Protocol Stop: 05/11/21 21:57 Last Admin: 05/11/21 22:52 Dose: 3 ml Documented by: [id number] Dexamethasone Sodium Phosphate (DexamethasonePf 10 Mg/Ml Vial) 10 mg IV NOW ONE Stop: 05/11/21 21:57 Last Admin: 05/11/21 22:52 Dose: 10 mg Documented by: [id number] Heparin Sodium (Porcine) (Heparin Sod (Porcine) 1000 Unit/Ml) 1 units IV NOW ONE Stop: 05/12/21 03:32 Last Admin: 05/12/21 03:38 Dose: 7,000 units Documented by: [id number] Cosigned by: [id number] Heparin Sodium/Dextrose (Heparin Iv Adult Wt-Based Standard With Bolus Protocol) 1 ea IV NOW STA; Protocol Stop: 05/12/21 03:16 Last Admin: 05/12/21 03:38 Dose: 1 ea Documented by: [id number] Ioversol (Optiray 320 125ml) 120 ml IV ONCE ONE Stop: 05/12/21 01:44 Last Admin: 05/12/21 01:44 Dose: 120 ml Documented by: [id number] Critical Care Time I have personally spent greater than 57 minutes of critical care time in the direct management of this patient. This includes bedside care, interpretation of diagnostic studies, and testing, discussion with consultants, patient, and family members, and other required patient management activities. This 57 minutes is in excess of all separately billable procedures. Medical Decision Making Differential Diagnosis Differential diagnosis includes, but is not limited to: Myocardial infarction, dysrhythmia, pericarditis, pneumothorax, aortic aneurysm/dissection, DVT/PE, anxiety, GERD, PUD, electrolyte imbalance, thyroid disorder, pneumonia, bronchitis, pancreatitis, and others Laboratory Data Result diagrams: 05/12/21 00:00 05/12/21 00:00 Lab Results 05/12/21 05/12/21 05/12/21 Range/Units 00:00 00:00 00:00 WBC 15.57 H (4.8-10.8) K/uL RBC 4.94 (4.7-6.1) M/uL Hgb 13.8 L (14.0-18.0) g/dL Hct 41.5 L (42-52) % MCV 84.0 (80-100) fL MCH 27.9 (25-34) pg MCHC 33.3 (32-36) g/dL RDW Std Deviation 46.8 H (36.4-46.3) fL RDW Coeff of Jaxson 15.1 H (11.5-14.5) % Plt Count 315 (130-400) K/uL MPV 10.1 (7.4-10.4) fL Immature Gran % (Auto) 0.3 % Neut % (Auto) 70.6 % Lymph % (Auto) 19.4 % [place] % (Auto) 8.6 % Eos % (Auto) 1.0 % Baso % (Auto) 0.1 % Neut # (Auto) 10.98 H (1.4-6.5) K/uL Lymph # (Auto) 3.02 (1.2-3.4) K/uL [place] # (Auto) 1.34 H (0.11-0.59) K/uL Eos # (Auto) 0.16 (0-0.5) K/uL Baso # (Auto) 0.02 (0-0.2) K/uL Immature Gran # (Auto) 0.05 H (0.00-0.02) K/uL PT (9.0-12.0) Seconds INR (0.9-1.1) APTT (21.0-31.0) Seconds PTT Ratio Sodium 139 (136-145) mmol/L Potassium 3.4 L (3.5-5.1) mmol/L Chloride 105 (98-107) mmol/L Carbon Dioxide 26 (21-32) mmol/L Anion Gap 8 (3-11) BUN 13 (6-23) mg/dl Creatinine 0.87 (0.6-1.4) mg/dl Est Cr Clr Drug Dosing 157.5 ml/min Est GFR ( Amer) 130.5 ml/min Est GFR (Non-Af Amer) 112.6 ml/min BUN/Creatinine Ratio 14.9 (10-20) Glucose 109 H (70-99(Fasting)) mg/dl Calcium 9.2 (8.5-10.1) mg/dl Total Bilirubin 0.3 (0.2-1.0) mg/dl AST 6 L (13-39) U/L ALT 22 (7-52) U/L Alkaline Phosphatase 65 (34-104) U/L Troponin I 0.74 H* (0-0.04) ng/ml B-Natriuretic Peptide (0-100) pg/ml Total Protein 7.2 (6.0-8.3) gm/dl Albumin 3.6 (3.4-5.0) gm/dl Globulin 3.6 (2.5-4.0) gm/dl Albumin/Globulin Ratio 1.0 (0.9-2) SARS-CoV-2, RNA, NAAT NEGATIVE (NEGATIVE) 05/12/21 05/12/21 Range/Units 00:00 02:53 WBC (4.8-10.8) K/uL RBC (4.7-6.1) M/uL Hgb (14.0-18.0) g/dL Hct (42-52) % MCV (80-100) fL MCH (25-34) pg MCHC (32-36) g/dL RDW Std Deviation (36.4-46.3) fL RDW Coeff of Jaxson (11.5-14.5) % Plt Count (130-400) K/uL MPV (7.4-10.4) fL Immature Gran % (Auto) % Neut % (Auto) % Lymph % (Auto) % [place] % (Auto) % Eos % (Auto) % Baso % (Auto) % Neut # (Auto) (1.4-6.5) K/uL Lymph # (Auto) (1.2-3.4) K/uL [place] # (Auto) (0.11-0.59) K/uL Eos # (Auto) (0-0.5) K/uL Baso # (Auto) (0-0.2) K/uL Immature Gran # (Auto) (0.00-0.02) K/uL PT 10.3 (9.0-12.0) Seconds INR 1.0 (0.9-1.1) APTT 27.1 (21.0-31.0) Seconds PTT Ratio 1.0 Sodium (136-145) mmol/L Potassium (3.5-5.1) mmol/L Chloride (98-107) mmol/L Carbon Dioxide (21-32) mmol/L Anion Gap (3-11) BUN (6-23) mg/dl Creatinine (0.6-1.4) mg/dl Est Cr Clr Drug Dosing ml/min Est GFR ( Amer) ml/min Est GFR (Non-Af Amer) ml/min BUN/Creatinine Ratio (10-20) Glucose (70-99(Fasting)) mg/dl Calcium (8.5-10.1) mg/dl Total Bilirubin (0.2-1.0) mg/dl AST (13-39) U/L ALT (7-52) U/L Alkaline Phosphatase (34-104) U/L Troponin I (0-0.04) ng/ml B-Natriuretic Peptide 144 H (0-100) pg/ml Total Protein (6.0-8.3) gm/dl Albumin (3.4-5.0) gm/dl Globulin (2.5-4.0) gm/dl Albumin/Globulin Ratio (0.9-2) SARS-CoV-2, RNA, NAAT (NEGATIVE) Imaging Data Radiologist's Impression: Preliminary Findings Only See Final Report For Complete Findings CTA CHEST: Bilateral pulmonary emboli involving the main stem pulmonary arteries and affecting all lobes. Associated with this is right heart strain with RV-LV ratio measuring 2.8. Recommend urgent intervention. No evidence of saddle embolus. Left upper lobe consolidation with additional airspace opacities in the lungs which likely relate to multifocal infection. Pulmonary infarcts not excluded. Suspected solid nodule at the left lower lobe measuring 8 mm. Consider follow- up imaging in 6-12 months. Radiologist:Crow Stiles MD Study ready at 02:01 and initial results transmitted at 02:27 MDM Narrative Physical exam and history were performed. Nursing notes, EMR, and Medication List were personally reviewed. Patient appears to have difficulty breathing with tachycardia. There is recent history of COVID-19 infection, and the patient incidentally reports having right leg pain. He is nontoxic-appearing, but speaking in very short sentences. IV access was established and labs were obtained. He was hydrated normal saline and given IV Decadron and DuoNeb. He was sent to CT scan out of concern for pulmonary emboli. An order was placed for continuous cardiac monitoring. The monitor shows a rate of 110 with sinus tachycardic rhythm. The patient's blood work is as above and was reviewed. He does have an elevated white blood cell count of 15,000. He does not have significant anemia, bandemia, or gross electrolyte imbalance. Transaminases are not diagnostic. He does have an elevated troponin of 0.74. Covid swab today is negative. CT scan was reviewed by myself and radiology, the patient does appear to have a large pulmonary emboli. The case was discussed with my attending Dr. Garcia, who also independently evaluated the patient. We did [facility] out to the ICU team, [facility] both [facility] whom did evaluate the patient here in the ER. After discussion of options of care we did start the patient on heparin with bolus here in the ER. Overall the patient does not seem well for discharge home. Please see the specialists dictation for further patient course, plan, and disposition. The chart was completed utilizing [employer] Speech Voice Recognition Software. Grammatical errors, random word insertions, pronoun errors, and incomplete sentences are an occasional consequence of this system due to software limitations, ambient noise, and hardware issues. Any formal questions or concerns about the content, text, or information contained within the body of this dictation should be directly addressed to the provider for clarification. . Impression & Plan Pulmonary embolism, Hypoxia Discharge Plan Visit Data Chief Complaint: Shortness of Breath/Dyspnea Stated Complaint: SOB, RIB PAIN RADIATING TO CHEST, HYPOXIC ED Provider: Chris Garcia ED Midlevel Provider: Juan M Kaiser Discharge Problem: Pulmonary embolism, Hypoxia Forms Stand Alone Forms: My [facility] Prescriptions Prescriptions: No Action naproxen 250 mg tablet 250 mg PO BID PRN (Reason: Pain) RF: 0 omeprazole 20 mg tablet,delayed release (DR/EC) 20 mg PO DAILY RF: 0 albuterol sulfate [Ventolin HFA] 90 mcg/actuation HFA aerosol inhaler 2 inh inhalation Q6H PRN (Reason: shortness of breath or wheezing) Qty: 6.7 RF: 0 ondansetron 4 mg tablet,disintegrating 4 mg PO Q6H PRN (Reason: nausea and vomiting) Qty: 15 RF: 0 dextromethorphan-guaifenesin [Mucus Relief ER DM-MAX] 60-1,200 mg tablet extended release 12 hr 1 tab PO BID PRN (Reason: cough) Qty: 20 RF: 0 Referrals Referrals: Eddi Shrestha DO [Primary Care Provider] -
[2021-05-12 00:19] LABS: Basophils # (auto) 0.02 K/uL (0-0.2); Basophils % (auto) 0.1 %; Eosinophils # (auto) 0.16 K/uL (0-0.5); Hematocrit (blood only) 41.5 % (42-52); Hemoglobin 13.8 g/dL (14.0-18.0); Immature Granulocytes # (auto) 0.05 K/uL (0.00-0.02); Immature Granulocytes % (auto) 0.3 %; Lymphocytes # (auto) 3.02 K/uL (1.2-3.4); Lymphocytes % (auto) 19.4 %; Mean Corpuscular Hemoglobin 27.9 pg (25-34); Mean Corpuscular Hgb Conc 33.3 g/dL (32-36); Mean Platelet Volume 10.1 fL (7.4-10.4); Monocytes # (auto) 1.34 K/uL (0.11-0.59); Monocytes % (auto) 8.6 %; Neutrophils # (auto) 10.98 K/uL (1.4-6.5); Neutrophils % (auto) 70.6 %; Platelet Count 315 K/uL (130-400); RDW Coefficient of Variation 15.1 % (11.5-14.5); RDW Standard Deviation 46.8 fL (36.4-46.3); Red Blood Count 4.94 M/uL (4.7-6.1); White Blood Count 15.57 K/uL (4.8-10.8)
[2021-05-12 00:41] LABS: Albumin Level 3.6 gm/dl (3.4-5.0); BUN Creatinine Ratio 14.9 (10-20); Bilirubin,Total 0.3 mg/dl (0.2-1.0); Calcium 9.2 mg/dl (8.5-10.1); Creatinine Clr Calc Pharmacy 157.5 ml/min; Est GFR (African American) 130.5 ml/min; Est GFR (Non-African American) 112.6 ml/min; Globulin 3.6 gm/dl (2.5-4.0); Potassium 3.4 mmol/L (3.5-5.1); Total Protein 7.2 gm/dl (6.0-8.3); Troponin I 0.74 ng/ml (0-0.04)
[2021-05-12] MEDS ORDERED: OPTIRAY 320 125ml IV ONE (01:43)
[2021-05-12 02:52] LABS: Partial Thromboplastin Time 27.1 Seconds (21.0-31.0); Prothrombin Time 10.3 Seconds (9.0-12.0)
[2021-05-12] MEDS ORDERED: Heparin IV Adult Wt-Based Standard WITH Bolus Protocol IV STA (03:15)
--- NOTE | 2021-05-12 03:20 | Emergency Department Note ---
ED Visit Note Patient was seen originally by my colleague Dr. Esquivel in conjunction with Juan M Kaiser PA-C. I was asked to assist with management of the patient when CT imaging showed evidence of large bilateral pulmonary emboli with evidence of right heart strain, patient's lab work shows an elevated troponin at 0.74, despite this he appears comfortable on my initial assessment, he is on 3 L nasal cannula oxygen and his oxygen saturation is 99%, blood pressure stable, patient denies any chest pain. He remains mildly tachycardic in the 110s. At this time given the patient's hemodynamic stability I do think it is reasonable to initiate a heparin drip with bolus, case was discussed with the on-call midlevel provider in the ICU [facility]. Heparin drip is ordered. Patient will be admitted in stable condition for further care in the ICU. .
[2021-05-12] MEDS ORDERED: HEPARIN SOD (PORCINE) 1000 UNIT/ML IV ONE (03:31)
[2021-05-12] MEDS: HEPARIN SODIUM/DEXTROSE 25,000 UNITS/500 ML BAG IV SCH ×2 (03:37→18:17)
[2021-05-12] MEDS ORDERED: POTASSIUM CHLORIDE CRTAB 20 MEQ TABCR PO STA (04:31)
--- NOTE | 2021-05-12 05:18 | Critical Care Consultation ---
Date of Consultation May 12, 2021 Assessment & Plan (1) Admitted to intensive care unit: Reason Critically Ill: 35-year-old male with large pulmonary embolism and right-sided heart strain requiring close hemodynamic monitoring and anticoagulation therapies. NEURO - * CAM ICU: NEGATIVE CARDIAC/VASCULAR - * Elevated troponin * Likely secondary to cardiac strain in the setting of large PE. * Will check BNP. * AM Echo * CT Showing RV/LV ratio of 2.8. * EKG shows sinus tach w/o ST Elevation. * Trend Troponin * Continue w/ Heparin gtt. * Monitor on telemetry. RESPIRATORY - * Large Pulmonary Embolism: * CT PE w/ bilateral PE. No saddle component. RV Strain. No infarcts noted. * Patient slightly tachycardic in the 100s-110s. Remains normo to hypertensive. Saturating well on 2L NC. * While patient remains hemodynamically stable and with minimal O2 requirements at this time, we will proceed w/ Heparin gtt. * Had lengthy discussion with patient at bedside and if he were to deteriorate, he is agreeable to TNK/TPA administration. * PE likely from unprovoked DVT (RLE US pending) in the patient w/ recent h/o Covid-19 and at high risk for coagulopathy. * If the patient were to require increasing O2 or become hemodynamically unstable, would proceed w/ thrombolytics. GI/NUTRITION - * Progress diet as tolerated. RENAL/LYTES - * No significant electrolyte derangements. - * No concerns at this time. ENDO - * No h/o DM or thyroid dz. * BSGs per unit protocol. ISS --> gtt per unit policy. HEME - * Stable H&H * Coags wnl. * Monitor for s/s bleeding s/p Heparin bolus w/ ongoing heparin gtt. ID - * Recent Covid-19 infection late March to early April. * Tested negative today. * No concerns for other infectious contributions at this time. LINES/IV ACCESS - * PIVs x2 DVT PROPHYLAXIS - * Heparin gtt * SCDs I have personally spent 45 minutes of critical care time in the direct ma nagement of this patient. This is a life/limb threatening event. This includes time spent evaluating patient, direct bedside care, chart review, placing orders, interpretation of diagnostic studies, discussion with consultants, patient, and family members, as well as other required patient management activities. This time is exclusive of all separately billable procedures, and teaching time and separate from and in addition to any other critical care service time. Thank you for allowing us to participate in the care of this patient. Please refer to my attending physician's documentation for any further recommendations. (2) Pulmonary embolism: (3) Hypoxia: (4) Elevated troponin: Supervising Physician Co-Signing Physician Notes Patient seen and examined separately from the [facility]. Patient with extensive bilateral pulmonary emboli with no significant hemodynamic instability. He feels better today. Continue heparin infusion per protocol. Echo pending. Should he have any decompensation, can consider systemic thrombolysis. Ultrasound of lower extremities pending as well. 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 I would still recommend a hematology referral as an outpatient for a hypercoagulable work-up. I started the patient on Rocephin and azithromycin for the possibility of community-acquired pneumonia given the infiltrate seen on CT chest. These infiltrates may also reflect pulmonary infarct. Recommend 5 days of antibiotics and can transition to orals in the next 1 to 2 days. History of Present Illness History of Present Illness Patient is a 35-year-old male with no reported past medical history who presented to the emergency department with shortness of breath on exertion and associated hypoxia. Patient had initial COVID-19 positive test on 03/31 after approximately 8 days of symptoms. Eventually, the patient required a short hospitalization for hypoxia which did resolve and required no home oxygen therapies. He has continued his normal activities of daily living despite complaints of ongoing shortness of breath issues since his diagnosis. Patient does report that he noticed pain behind his knee and was evaluated late last week at his primary care provider's office where an x-ray was obtained and found to be unremarkable. He states that the pain had progressed up his RIGHT thigh which he equated to symptoms of sciatica. He noticed that at approximately 4 PM today after work he had increasing shortness of breath from his baseline. He states the cold weather seems to make his symptoms worse. He states that he experienced tightness in his chest and shortness of breath with any exertion. He did have a home pulse ox monitor and noticed that his saturations were anywhere from 78 to 85%. 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 He reports no other significant long distance travel. He does not smoke. No family history of blood clots/bleeding disorders. Upon assessment in the emergency department, the patient is awake, alert, and oriented. He reports that he feels no shortness of breath while at rest. He states that he has had an ongoing cough since his Covid diagnosis but reports that is not worsened. He denies any complaints of hemoptysis. Patient does state that he did receive his first Pfizer code vaccination on 05/08. Patient had been experiencing symptoms of RIGHT lower extremity discomfort prior to this vaccination. Allergies Allergy/AdvReac Type Severity Reaction Status Date / Time bee venom protein (honey bee) Allergy Intermediate COLD Verified 05/11/21 22:48 SWEATS/VOMITING Home Medications Medication Instructions Recorded Confirmed Type naproxen 250 mg tablet 250 mg PO BID PRN 02/25/19 05/11/21 History omeprazole 20 mg tablet,delayed 20 mg PO DAILY 02/25/19 05/11/21 History release albuterol sulfate 90 mcg/actuation 2 inh INHALATION Q6H PRN #6.7 g 03/31/21 05/11/21 Rx aerosol inhaler (Ventolin HFA) ondansetron 4 mg disintegrating 4 mg PO Q6H PRN #15 tab 03/31/21 05/11/21 Rx tablet dextromethorphan-guaifenesin ER 60 1 tab PO BID PRN #20 tab 04/07/21 05/11/21 Rx mg-1,200 mg tab,extend release,12hr (Mucus Relief ER DM-MAX) Patient History Medical History No significant past medical history Pneumonia due to COVID-19 virus Pulmonary embolism Surgical History No significant past surgical history Family History Denies family history of Ovarian cancer Prostate cancer Myocardial infarction Breast cancer Colorectal cancer Social History Smoking Status: Never smoker Second Hand Exposure: No; Hx Alcohol Use: No Hx Substance Use: No Preferred Language: Amharic Communication Ability: Effective Visual Impairment: No Limitations Hearing Ability: Normal Histology Manager Required: No Beliefs That Will Affect Care: None marital status: Current Living Situation: Significant Other Other Information That Helps Us Care for You: No Feels Safe at Home: Yes Assistive Devices: Glasses and Oxygen - Continuous Review of Systems Review of Systems: A complete 10 point review of systems was reviewed with the patient with pertinent positives and negatives as per history of present illness. All else were negative. Physical Exam Physical Exam: VITAL SIGNS - Vital signs and nursing notes were reviewed. GENERAL - 35-year-old male appearing his stated age who is in no acute distress. Communicates well with provider and answers questions appropriately. HEAD - NC/AT. EYES - PERRL with EOMI bilaterally. Sclera anicteric. Palpebral conjunctiva pink and moist with no injection noted. EARS - No deformities of external structures noted on gross examination bilaterally. NOSE - Midline and without cyanosis. No epistaxis or purulent drainage noted. MOUTH/OROPHARYNX - Without perioral cyanosis. Buccal mucosa pink and moist and without leukoplakia. Tongue midline with equal elevation of palate bilaterally. No tonsillar hypertrophy, erythema, or exudates noted. NECK - Neck with FROM. Supple to palpation. LUNGS - Chest wall symmetric without accessory muscle use, intercostals retractions, or central cyanosis. Normal vesicular breath sounds CTA B/L. No wheezes, rales, or rhonchi appreciated. CARDIAC - RRR with S1/S2. No murmur, rubs, or gallops appreciated. repro ducible tenderness to palpation appreciated over the anterior chest wall. ABDOMEN - Abdominal contour obese without pulsations or visible masses. BS normoactive all four quadrants. No tenderness, palpable masses, hepatosplenomegaly, or ascites noted. EXTREMITIES - No clubbing or peripheral cyanosis. No pretibial edema present. +3/5 radial and dorsalis pedis pulses palpated throughout. +5/5 strength noted in UE/LE bilaterally. NEUROLOGIC - Cranial nerves II through XII grossly intact. Sensory intact to light touch throughout. PSYCH - A&Ox3 and cooperates fully with examiner. Pt is very pleasant and interacts well with examiner. Results & Data Results & Data ([facility]) Vital Signs (Past 12 Hours) Vital Signs Temp Pulse Pulse Resp BP BP Pulse Ox 05/12/21 03:03 110 H 29 H 134/87 97 05/11/21 23:08 117 H 117 H 24 125/92 99 05/11/21 21:55 95 05/11/21 21:42 36.4 C L 135 H 18 157/90 H 88 L Coding Level of Care Code Critical Care 1st 30-74 mins Diagnoses Admitted to intensive care unit Z78.9 Pulmonary embolism I26.99 Hypoxia R09.02 Elevated troponin R77.8 Time Spent (min) 45
[2021-05-12] MEDS ORDERED: ICU PROTOCOL FOR HYPERGLYCEMIA PRN (05:55)
[2021-05-12] MEDS ORDERED: ALBUTEROL HFA 8 GM INHALER INH PRN (05:55)
--- NOTE | 2021-05-12 07:29 | CT Scan Report ---
CT ANGIOGRAPHY OF THE CHEST, PULMONARY EMBOLUS PROTOCOL CLINICAL HISTORY: SOB. Recent covid COMPARISON STUDY: Chest radiograph April 05, 2021. TECHNIQUE: Following IV administration of 120 mL of Optiray, helical axial images of the chest were o btained utilizing the pulmonary embolus protocol. Maximal intensity projections and sagittal and cor onal reformats were viewed on an independent 3D workstation. IV contrast was administered without co mplication. Automated exposure control was utilized for the study. A dose lowering technique was ut ilized adhering to the principles of ALARA. CT DOSE: 1127.24 mGy.cm FINDINGS: There are extensive bilateral pulmonary emboli, including emboli within the distal right a nd left pulmonary arteries. Emboli extend into the lobar and segmental branches of both lungs. There is evidence for right heart strain with dilatation of the right heart chambers and leftward bowing of the interventricular septum. Mild cardiomegaly is noted. No pericardial effusion. No thoracic aortic dissection. No enlarged thoracic lymph nodes are present. There is bilateral gynecomastia. No pneumo thorax or pleural effusion is noted. 1 cm subpleural nodular opacity within the right lower lobe on i mage 65 of 278 is noted. There is a focus of consolidation within the lingula that measures 5.2 cm. A dditional patchy groundglass opacities throughout the lungs are present. No pneumothorax or pleural e ffusion is present. Central airways are patent. Visualized portions of the upper abdomen are unremark able. IMPRESSION: 1. Extensive bilateral pulmonary emboli, as described above, with evidence for right heart strain inc luding dilatation of the right heart chambers and leftward bowing of the interventricular septum. [place]a se hemodynamic monitoring is recommended. 2. 5.2 cm focus of consolidation within the lingula. This likely reflects pneumonia. A pulmonary infa rct is considered less likely. Additional patchy groundglass opacities within lungs consistent with v iral pneumonia. 3. 1 cm subpleural nodular opacity within the right lower lobe. This could be infectious or represent a pulmonary nodule. Follow-up chest CT in 6 months to ensure resolution is recommended. ACT 112: Negative or not required by law. Electronically signed by: Ramone Gamino M.D. 05/12/2021 7:27 AM
[2021-05-12] MEDS ORDERED: AZITHROMYCIN 500 MG in DEXTROSE 5% 250 ML IV ONE (08:00)
--- NOTE | 2021-05-12 08:01 | History and Physical Report ---
DATE OF ADMISSION: 05/11/2021. CHIEF COMPLAINT: Shortness of breath. HISTORY OF PRESENT ILLNESS: A 35-year-old male who was diagnosed with COVID in end of March, developed pneumonia. At that time, he was treated with dexamethasone. He did fine and got discharged home without any oxygen. The patient says since then he is having ongoing cough .. With exertion, he gets short of breath, but resting it goes away, but yesterday evening at 4:30, he was getting short of breath. Even with resting, he was not getting better. When his girlfriend came and checked his oxygen saturation, it was down and he was brought in here. He was found to be tachycardic, tachypneic. White count was 15 and troponin was 0.7. CTA shows bilateral pulmonary emboli involving the main stem of pulmonary artery and all lobes, associated with right heart strain. No evidence of saddle embolus. Left upper lobe consolidation with additional airspace opacities in the lungs, which are likely related to multifocal infection, pulmonary reflux not excluded. ICU was notified. Currently, the patient seems to be comfortable on 3 liters. Starting on IV heparin. Denies any chest pain. Denies any headache. No blurred visions, no earache, no runny nose, no sore throat, no dizziness, no nausea, no vomiting, no abdominal pain. Normal bowel and bladder movements. No hematuria. No bloody or black stools. No swelling in the legs. ALLERGIES: BEE VENOM. PAST MEDICAL HISTORY: As mentioned above. PAST SURGICAL HISTORY: No past surgical history. MEDICATIONS: None. FAMILY HISTORY: Nothing significant. SOCIAL HISTORY: No smoking, no alcohol, no drug use. REVIEW OF SYSTEMS: As per HPI. Rest of the review of systems is negative. PHYSICAL EXAMINATION: GENERAL: The patient is morbidly obese, currently not in acute distress. VITAL SIGNS: Temperature 36.4, pulse 110, respiratory rate 29, blood pressure 134/87, oxygen 97% on 3 liters. HEENT: Pupils equal, round and reactive to light. Oral mucosa moist. NECK: No JVD, no neck masses. CARDIOVASCULAR: S1 and S2 heard. Tachycardia. No murmurs. RESPIRATORY SYSTEM: Normal AP diameter. No accessory muscle use. No wheezing, no crackles. ABDOMEN: Soft, bowel sounds present, nontender, no distention. CENTRAL NERVOUS SYSTEM: Cranial nerves II-XII grossly intact, nonfocal. EXTREMITIES: No edema, no erythema. LABORATORY DATA: WBC 15.5, hemoglobin 13.8, hematocrit 41.5, platelets 315. PT 10.3, INR 1, APTT 27.1. Sodium 139, potassium 3.4, chloride 105, bicarbonate 26, BUN 13, creatinine 0.8, serum glucose 109, calcium 9.2, total bilirubin 0.3, AST 6, ALT 22, alkaline phosphatase 65. Troponin 1 of 0.7. BNP of 144. SARS-CoV-2 RNA negative. IMAGING DATA: CTA of the chest, as mentioned, bilateral PE, and right heart strain as mentioned in the H and P. EKG: Sinus tachycardia at a rate of 116. Incomplete right bundle branch block. ASSESSMENT AND PLAN: This is a 35-year-old male who presents with shortness of breath and found to have bilateral pulmonary embolism. 1. Bilateral pulmonary embolism and right heart strain. Elevation of troponin. ICU notified. Started on IV heparin. Closely monitor in the ICU. The patient may need TPA. Will follow the echocardiogram. Follow serial enzymes. Closely monitor. 2. Hypokalemia: Will replace. 3. Deep venous thrombosis prophylaxis: On IV heparin. 4. Leukocytosis: Will monitor. DISPOSITION: Admit to ICU. Level 1 full code. Expect to discharge home and follow with family doctor. Job ID: [id number] [facility]
[2021-05-12] MEDS: Heparin IV Adult Wt-Based Standard WITH Bolus Protocol IV SCH ×3 (08:24→09:56)
[2021-05-12] MEDS: cefTRIAXone SODIUM 2,000 MG in DEXTROSE 5% 50 ML IV SCH (08:44)
[2021-05-12 08:48] LABS: Partial Thromboplastin Ratio 2.2
[2021-05-12 09:01] LABS: Partial Thromboplastin Time 57.9 Seconds (21.0-31.0)
[2021-05-12] MEDS: PANTOprazole 40 MG TAB PO SCH (09:50)
[2021-05-12] MEDS ORDERED: GUAIFENESIN PO PRN (15:47)
[2021-05-12] MEDS ORDERED: [UNRECOGNIZED DRUG - OTHER] PO PRN (15:47)
[2021-05-12] MEDS ORDERED: DEXTROMETHORPHAN PO PRN (15:47)
[2021-05-12] MEDS ORDERED: guaiFENesin 600 MG TABCR PO PRN (15:48)
[2021-05-12] MEDS ORDERED: DEXTROMETHORPHAN POLYMR COMPLX 60 MG/10 ML UDP PO PRN (15:49)
[2021-05-12 16:03] LABS: C Reactive Protein 3.84 mg/dl (0-0.5)
[2021-05-13 05:16] LABS: Troponin I 0.15 ng/ml (0-0.04)
[2021-05-13 05:24] LABS: C Reactive Protein 2.97 mg/dl (0-0.5)
[2021-05-13 06:22] LABS: Partial Thromboplastin Ratio 1.6; Partial Thromboplastin Time 42.1 Seconds (21.0-31.0)
--- NOTE | 2021-05-13 06:36 | Electrocardiogram Report ---
Test Reason : Blood Pressure : / mmHG Vent. Rate : 116 BPM Atrial Rate : 116 BPM P-R Int : 162 ms QRS Dur : 108 ms QT Int : 340 ms P-R-T Axes : 038 011 004 degrees QTc Int : 472 ms Sinus tachycardia Possible Left atrial enlargement Incomplete right bundle branch block T wave abnormality, consider inferior ischemia T wave abnormality, consider anterior ischemia Abnormal ECG When compared with ECG of 05-APR-2021 16:14, Vent. rate has increased BY 64 BPM T wave inversion now evident in Anterior leads Confirmed by Stevenson Trejo ([id number]) on 05/13/2021 6:35:42 AM Referred By: REFERRED SELF Confirmed By:Stevenson Trejo
--- NOTE | 2021-05-13 06:37 | Electrocardiogram Report ---
Test Reason : Blood Pressure : / mmHG Vent. Rate : 114 BPM Atrial Rate : 114 BPM P-R Int : 158 ms QRS Dur : 106 ms QT Int : 342 ms P-R-T Axes : 038 014 001 degrees QTc Int : 471 ms Sinus tachycardia Possible Left atrial enlargement Incomplete right bundle branch block T wave abnormality, consider inferior ischemia T wave abnormality, consider anterior ischemia Abnormal ECG When compared with ECG of 11-MAY-2021 23:05, No significant change was found Confirmed by Stevenson Trejo ([id number]) on 05/13/2021 6:36:52 AM Referred By: REFERRED SELF Confirmed By:Stevenson Trejo
[2021-05-13] MEDS: HEPARIN SODIUM/DEXTROSE 25,000 UNITS/500 ML BAG IV SCH ×3 (08:21→22:05)
[2021-05-13] MEDS: cefTRIAXone SODIUM 2,000 MG in DEXTROSE 5% 50 ML IV SCH (08:22)
[2021-05-13] MEDS: PANTOprazole 40 MG TAB PO SCH (08:23)
--- NOTE | 2021-05-13 12:24 | Cardiology Consultation ---
Date of Consultation May 13, 2021 Assessment & Plan (1) Elevated troponin: (2) Pulmonary embolism: (3) Pneumonia due to COVID-19 virus: The patient's echocardiogram may be technical. At this point I would treat the patient as you would for pulmonary emboli. LV function on the ultras ound appears normal. Lab tests are fairly unremarkable. After discharge we will repeat the ultrasound as an outpatient and have further recommendations. History of Present Illness Attending Physician: Mirza Kirby DO History of Present Illness 35-year-old male patient who was diagnosed with Covid several weeks ago. He felt like he recovered then he started to get short of breath and came into the hospital. He has been found to have pulmonary emboli. The patient had an echocardiogram which shows right ventricular strain. Left ventricular function appears to be normal but the appearance of the myocardium is on four 35-year-old. His troponin is slightly elevated which is to be expected. All other labs are unremarkable. Allergies Allergy/AdvReac Type Severity Reaction Status Date / Time bee venom protein (honey bee) Allergy Intermediate COLD Verified 05/11/21 22:48 SWEATS/VOMITING Home Medications Medication Instructions Recorded Confirmed Type naproxen 250 mg tablet 250 mg PO BID PRN 02/25/19 05/11/21 History omeprazole 20 mg tablet,delayed 20 mg PO DAILY 02/25/19 05/11/21 History release albuterol sulfate 90 mcg/actuation 2 inh INHALATION Q6H PRN #6.7 g 03/31/21 05/11/21 Rx aerosol inhaler (Ventolin HFA) ondansetron 4 mg disintegrating 4 mg PO Q6H PRN #15 tab 03/31/21 05/11/21 Rx tablet dextromethorphan-guaifenesin ER 60 1 tab PO BID PRN #20 tab 04/07/21 05/11/21 Rx mg-1,200 mg tab,extend release,12hr (Mucus Relief ER DM-MAX) Patient History Medical History No significant past medical history Pneumonia due to COVID-19 virus Pulmonary embolism Surgical History No significant past surgical history Family History Denies family history of Ovarian cancer Prostate cancer Myocardial infarction Breast cancer Colorectal cancer Social History Smoking Status: Never smoker Second Hand Exposure: No; Hx Alcohol Use: No Hx Substance Use: No Preferred Language: Singaporean Communication Ability: Effective Visual Impairment: No Limitations Hearing Ability: Normal Clinical Sales Consultant Required: No Beliefs That Will Affect Care: None marital status: Single Current Living Situation: Significant Other Other Information That Helps Us Care for You: No Feels Safe at Home: Yes Assistive Devices: None Review of Systems Review of Systems: Review of Systems: See HPI for pertinent positives. All other 10 point review of systems are negative. Physical Exam Physical Exam: General: no acute distress and stated age Head: normocephalic, no masses, lesions, tenderness or abnormalities Eyes: conjunctiva are pink and non-injected, sclera clear Neck: supple, no adenopathy, no bruits, normal jugular venous pulse, no hepatojugular reflux Chest: normal shape and normal respiratory effort Lungs: clear to auscultation and percussion Cardiac Exam: - regular rate & rhythm, no murmurs gallops or rubs - normal S1, normal S2 Pulses: 2(+) throughout Abdomen: abdomen soft, non-tender, no abnormal masses and no hepatosplenomegaly Musculoskeletal: no gait disturbance, no joint inflammation, no deforming arthritis Extremities: no edema and no cyanosis Neuro: grossly normal exam Results & Data ([facility]) Vital Signs (Past 12 Hours) Vital Signs Temp Pulse Resp BP Pulse Ox 05/13/21 11:31 85 24 119/80 95 05/13/21 08:00 36.5 C 69 20 119/66 92 05/13/21 04:00 36.5 C 82 24 122/77 95 Laboratory Results Laboratory Results - last 24 hr 05/12/21 05/12/21 05/12/21 08:02 16:24 20:10 APTT PTT Ratio POC Glucose 122 H Lactate Dehydrogenase Creatine Kinase Total Creatine Kinase 89 CK-MM (CK-3) CK-MB (CK-2) CK-BB (CK-1) Creatine Kinase Interp Troponin I C-Reactive Protein 3.84 H Nasal Screen MRSA (PCR) Negative 05/13/21 05/13/21 05/13/21 04:29 04:29 04:29 APTT PTT Ratio POC Glucose Lactate Dehydrogenase 242 Creatine Kinase Cancelled Total Creatine Kinase 41 CK-MM (CK-3) Cancelled CK-MB (CK-2) Cancelled CK-BB (CK-1) Cancelled Creatine Kinase Interp Cancelled Troponin I 0.15 H* C-Reactive Protein 2.97 H Nasal Screen MRSA (PCR) 05/13/21 04:29 APTT 42.1 H PTT Ratio 1.6 POC Glucose Lactate Dehydrogenase Creatine Kinase Total Creatine Kinase CK-MM (CK-3) CK-MB (CK-2) CK-BB (CK-1) Creatine Kinase Interp Troponin I C-Reactive Protein Nasal Screen MRSA (PCR) Medications Administered Current Inpatient Medications Albuterol (Albuterol Hfa 8 Gm Inhaler) 2 puffs INH Q6H PRN; Protocol PRN Reason: shortness of breath or wheezing Stop: 06/11/21 05:54 Dextromethorphan Polymer Complex (Dextromethorphan Polymr Complx 60 Mg/10 Ml Udp) 60 mg PO BID PRN PRN Reason: Cough Stop: 06/11/21 15:48 Guaifenesin (Guaifenesin 600 Mg Tabcr) 1,200 mg PO BID PRN PRN Reason: cough Stop: 06/11/21 15:47 Heparin Sodium/Dextrose (Heparin Sodium/Dextrose) 25,000 units in 500 mls @ 34 mls/hr IV .[id number] MELANIE; Protocol Stop: 06/11/21 03:44 Last Admin: 05/13/21 08:21 Dose: 1,800 units/hr, 36 mls/hr Documented by: Ceftriaxone Sodium 2,000 mg/ (Dextrose) 70 mls @ 100 mls/hr IV DAILY MELANIE; Protocol Stop: 05/19/21 08:59 Last Infusion: 05/13/21 09:01 Dose: Infused Documented by: Pantoprazole Sodium (Pantoprazole 40 Mg Tab) 40 mg PO DAILY MELANIE; Protocol Stop: 06/11/21 08:59 Last Admin: 05/13/21 08:23 Dose: 40 mg Documented by:
--- NOTE | 2021-05-13 12:39 | Hospitalist Progress Note ---
Date of Service May 13, 2021 Assessment & Plan (1) Elevated troponin: (2) Pulmonary embolism: (3) Pneumonia due to COVID-19 virus: (4) Hypoxia: Plan: Patient is on a Heparin Gtt. Will be switched to Eliquis before DC, Pulm and Cards on case ROS-No Headache, No Visual Changes, No Nausea, No Vomiting, No Fever, No Chills, No Neck Pain or Stiffness, No Chest Pain, No Palpitations, + SOB, No HOPPER, No Cough, No Sputum, No Wheezing, No Abdominal Pain, No Diarrhea, No Hematemesis, No Hemoptysis, No Unexpected Weight Loss, No Flank pain, No Melena, No Hematochezia, No Frequency, No Urgency, No Burning, No Hematuria, No Rashes, No Diaphoresis. Appetite is Normal Physical Exam Gen-AAO x 3, NAD, Afebrile, obese, [place]-NCAT, EOMI, PERRLA, Anicteric Sclera, No Posterior Pharyngeal Erythema Neck-Supple, No JVD, No Thyromegaly, No Masses, No LAD, No Bruits Lungs-Clear to Auscultation Bilaterally, No Rales, No Rhonchi, No Wheezing, No Crepitus Chest-No S4, +S1, +S2, No S3, No Murmurs, No Rubs, No Gallops, No Ectopy Abdomen-Soft, Bowel Sounds Present, Non Tender, Non Distended, No Hepatomegaly, No Splenomegaly, No Palpable Masses, No Rebound, No Rigidity, No Guarding Musculoskeletal-Full Range of Motion Bilaterally, No CVAT Extremities-No Cyanosis, No Clubbing, No Edema Nuero-Cranial Nerves II-XII grossly intact, Motor WNL, DTRs WNL, Strength WNL, Non Focal Psych-Normal Mood Admission and Anticipated Discharge Date Admission Date: May 12, 2021 Subjective Patient seen, feeling a little bit better than yesterday. Discussed the case with him and his who was on the phone at the time. Results & Data Results & Data ([facility]) Vital Signs (Past 12 Hours) Vital Signs Temp Pulse Resp BP Pulse Ox 05/13/21 11:31 85 24 119/80 95 05/13/21 08:00 36.5 C 69 20 119/66 92 05/13/21 04:00 36.5 C 82 24 122/77 95 Laboratory Results Reviewed
[2021-05-13 13:31] LABS: Partial Thromboplastin Ratio 1.4; Partial Thromboplastin Time 37.5 Seconds (21.0-31.0)
--- NOTE | 2021-05-13 13:45 | Ultrasound Report ---
BILATERAL LOWER EXTREMITY VENOUS DOPPLER HISTORY: Bilateral pulmonary emboli. Right leg pain with injury. Recent Covid. COMPARISON STUDY: None. FINDINGS: There is normal compressibility, flow, and augmentation within the left lower extremity chasity p venous system. The right common femoral and superficial femoral veins are patent. There is occlusiv e DVT within the right popliteal vein as well as noncompressibility of the tibial veins consistent wi th thrombus. There is occlusive thrombus seen within the proximal left saphenous vein. IMPRESSION: 1. Deep and superficial vein thrombosis within the right lower extremity as described above. 2. No DVT within the left lower extremity. ACT 112: Negative or not required by law. Electronically signed by: Dipak Delcid M.D. 05/13/2021 1:44 PM
[2021-05-13] MEDS ORDERED: HEPARIN SOD (PORCINE) 1000 UNIT/ML IV ONE (13:54)
[2021-05-13 20:59] LABS: Partial Thromboplastin Ratio 1.9
[2021-05-13 21:06] LABS: Partial Thromboplastin Time 50.7 Seconds (21.0-31.0)
[2021-05-14 07:06] LABS: Hematocrit (blood only) 40.2 % (42-52); Hemoglobin 13.1 g/dL (14.0-18.0); Mean Corpuscular Hemoglobin 27.5 pg (25-34); Mean Corpuscular Hgb Conc 32.6 g/dL (32-36); Mean Corpuscular Volume 84.5 fL (80-100); Mean Platelet Volume 10.6 fL (7.4-10.4); Platelet Count 266 K/uL (130-400); RDW Coefficient of Variation 15.4 % (11.5-14.5); RDW Standard Deviation 47.4 fL (36.4-46.3); Red Blood Count 4.76 M/uL (4.7-6.1); White Blood Count 14.58 K/uL (4.8-10.8)
[2021-05-14 07:45] LABS: Calcium 8.8 mg/dl (8.5-10.1); Creatinine Clr Calc Pharmacy 179.9 ml/min; Est GFR (African American) 135.1 ml/min; Est GFR (Non-African American) 116.6 ml/min; Potassium 3.6 mmol/L (3.5-5.1)
[2021-05-14 08:06] LABS: Partial Thromboplastin Ratio 2.2
[2021-05-14 08:09] LABS: Partial Thromboplastin Time 57.2 Seconds (21.0-31.0)
--- NOTE | 2021-05-14 08:38 | Cardiology Progress Note ---
Date of Service May 14, 2021 Assessment & Plan (1) Elevated troponin: (2) Pulmonary embolism: (3) Pneumonia due to COVID-19 virus: Plan: The patient is clinically stable. I agree with transitioning the patient over to warfarin. His weight precludes him from starting Eliquis. I will arrange follow-up through our clinic and he will have a follow-up echocardiogram as an outpatient. No other recommendations at this time. Admission and Anticipated Discharge Date Admission Date: May 12, 2021 Subjective The patient had an uneventful night. Rhythm remained stable on telemetry. He has no complaints. Review of Systems Review of Systems: Review of Systems: See HPI for pertinent positives. All other 10 point review of systems are negative. Physical Exam Physical Exam: General: no acute distress and stated age Head: normocephalic, no masses, lesions, tenderness or abnormalities Eyes: conjunctiva are pink and non-injected, sclera clear Neck: supple, no adenopathy, no bruits, normal jugular venous pulse, no hepatojugular reflux Chest: normal shape and normal respiratory effort Lungs: clear to auscultation and percussion Cardiac Exam: - regular rate & rhythm, no murmurs gallops or rubs - normal S1, normal S2 Pulses: 2(+) throughout Abdomen: abdomen soft, non-tender, no abnormal masses and no hepatosplenomegaly Musculoskeletal: no gait disturbance, no joint inflammation, no deforming arthritis Extremities: no edema and no cyanosis Neuro: grossly normal exam Results & Data ([facility]) Vital Signs (Past 12 Hours) Vital Signs Temp Pulse Pulse Resp BP Pulse Ox 05/14/21 07:55 36.5 C 64 19 116/74 96 05/14/21 04:20 36.6 C 59 L 20 118/75 98 05/14/21 00:31 77 05/13/21 23:18 36.8 C 73 19 100/66 99 Laboratory Results Laboratory Results - last 24 hr 05/13/21 05/13/21 05/14/21 12:46 20:10 06:22 WBC 14.58 H RBC 4.76 Hgb 13.1 L Hct 40.2 L MCV 84.5 MCH 27.5 MCHC 32.6 RDW Std Deviation 47.4 H RDW Coeff of Jaxson 15.4 H Plt Count 266 MPV 10.6 H APTT 37.5 H 50.7 H* PTT Ratio 1.4 1.9 Sodium Potassium Chloride Carbon Dioxide Anion Gap BUN Creatinine Est Cr Clr Drug Dosing Est GFR ( Amer) Est GFR (Non-Af Amer) BUN/Creatinine Ratio Glucose Calcium 05/14/21 05/14/21 06:22 06:22 WBC RBC Hgb Hct MCV MCH MCHC RDW Std Deviation RDW Coeff of Jaxson Plt Count MPV APTT 57.2 H* PTT Ratio 2.2 Sodium 137 Potassium 3.6 Chloride 103 Carbon Dioxide 26 Anion Gap 8 BUN 16 Creatinine 0.80 Est Cr Clr Drug Dosing 179.9 Est GFR ( Amer) 135.1 Est GFR (Non-Af Amer) 116.6 BUN/Creatinine Ratio 20.0 Glucose 94 Calcium 8.8 Medications Administered Current Inpatient Medications Albuterol (Albuterol Hfa 8 Gm Inhaler) 2 puffs INH Q6H PRN; Protocol PRN Reason: shortness of breath or wheezing Stop: 06/11/21 05:54 Dextromethorphan Polymer Complex (Dextromethorphan Polymr Complx 60 Mg/10 Ml Udp) 60 mg PO BID PRN PRN Reason: Cough Stop: 06/11/21 15:48 Guaifenesin (Guaifenesin 600 Mg Tabcr) 1,200 mg PO BID PRN PRN Reason: cough Stop: 06/11/21 15:47 Heparin Sodium/Dextrose (Heparin Sodium/Dextrose) 25,000 units in 500 mls @ 40 mls/hr IV .[id number] MELANIE; Protocol Stop: 06/11/21 03:44 Last Titration: 05/14/21 06:49 Dose: 2,000 units/hr, 40 mls/hr Documented by: Ceftriaxone Sodium 2,000 mg/ (Dextrose) 70 mls @ 100 mls/hr IV DAILY MELANIE; Protocol Stop: 05/19/21 08:59 Last Infusion: 05/13/21 09:01 Dose: Infused Documented by: Pantoprazole Sodium (Pantoprazole 40 Mg Tab) 40 mg PO DAILY MELANIE; Protocol Stop: 06/11/21 08:59 Last Admin: 05/13/21 08:23 Dose: 40 mg Documented by: Warfarin Sodium (Warfarin Sod 5 Mg Tab) 5 mg PO DAILY@1600 MELANIE Stop: 06/13/21 15:59
[2021-05-14] MEDS: PANTOprazole 40 MG TAB PO SCH (09:17)
[2021-05-14] MEDS: cefTRIAXone SODIUM 2,000 MG in DEXTROSE 5% 50 ML IV SCH (09:21)
[2021-05-14] MEDS: HEPARIN SODIUM/DEXTROSE 25,000 UNITS/500 ML BAG IV SCH ×2 (10:37→23:16)
--- NOTE | 2021-05-14 14:12 | Hospitalist Progress Note ---
Date of Service May 14, 2021 Assessment & Plan (1) Elevated troponin: (2) Pulmonary embolism: (3) Pneumonia due to COVID-19 virus: (4) Hypoxia: Plan: Patient is on a Heparin Gtt. Now on Coumadin bridge, DC when INR 2 or greater ROS-No Headache, No Visual Changes, No Nausea, No Vomiting, No Fever, No Chills, No Neck Pain or Stiffness, No Chest Pain, No Palpitations, + SOB, No HOPPER, No Cough, No Sputum, No Wheezing, No Abdominal Pain, No Diarrhea, No Hematemesis, No Hemoptysis, No Unexpected Weight Loss, No Flank pain, No Melena, No Hematochezia, No Frequency, No Urgency, No Burning, No Hematuria, No Rashes, No Diaphoresis. Appetite is Normal Physical Exam Gen-AAO x 3, NAD, Afebrile, obese, [place]-NCAT, EOMI, PERRLA, Anicteric Sclera, No Posterior Pharyngeal Erythema Neck-Supple, No JVD, No Thyromegaly, No Masses, No LAD, No Bruits Lungs-Clear to Auscultation Bilaterally, No Rales, No Rhonchi, No Wheezing, No Crepitus Chest-No S4, +S1, +S2, No S3, No Murmurs, No Rubs, No Gallops, No Ectopy Abdomen-Soft, Bowel Sounds Present, Non Tender, Non Distended, No Hepatomegaly, No Splenomegaly, No Palpable Masses, No Rebound, No Rigidity, No Guarding Musculoskeletal-Full Range of Motion Bilaterally, No CVAT Extremities-No Cyanosis, No Clubbing, No Edema Nuero-Cranial Nerves II-XII grossly intact, Motor WNL, DTRs WNL, Strength WNL, Non Focal Psych-Normal Mood Admission and Anticipated Discharge Date Admission Date: May 12, 2021 Subjective No new issues overnight Results & Data Results & Data ([facility]) Vital Signs (Past 12 Hours) Vital Signs Temp Pulse Pulse Resp BP Pulse Ox Pulse Ox 05/14/21 11:51 36.7 C 77 19 128/74 94 05/14/21 08:00 65 98 05/14/21 07:55 36.5 C 64 19 116/74 96 05/14/21 04:20 36.6 C 59 L 20 118/75 98
[2021-05-14] MEDS: WARFARIN SOD 5 MG TAB PO SCH (16:24)
[2021-05-15 07:44] LABS: Hemoglobin 13.9 g/dL (14.0-18.0); Mean Corpuscular Hemoglobin 27.9 pg (25-34); Mean Corpuscular Hgb Conc 33.1 g/dL (32-36); Mean Corpuscular Volume 84.2 fL (80-100); Mean Platelet Volume 10.6 fL (7.4-10.4); Platelet Count 251 K/uL (130-400); RDW Coefficient of Variation 15.4 % (11.5-14.5); RDW Standard Deviation 47.2 fL (36.4-46.3); Red Blood Count 4.99 M/uL (4.7-6.1); White Blood Count 12.77 K/uL (4.8-10.8)
[2021-05-15 08:00] LABS: Prothrombin Time 10.5 Seconds (9.0-12.0)
--- NOTE | 2021-05-15 08:38 | Hospitalist Progress Note ---
Date of Service May 15, 2021 Assessment & Plan (1) Elevated troponin: (2) Pulmonary embolism: (3) Pneumonia due to COVID-19 virus: (4) Hypoxia: Plan: Patient is on a Heparin Gtt. Coumadin bridge, DC when INR 2 or greater ROS-No Headache, No Visual Changes, No Nausea, No Vomiting, No Fever, No Chills, No Neck Pain or Stiffness, No Chest Pain, No Palpitations, no SOB, No HOPPER, No Cough, No Sputum, No Wheezing, No Abdominal Pain, No Diarrhea, No Hematemesis, No Hemoptysis, No Unexpected Weight Loss, No Flank pain, No Melena, No Hematochezia, No Frequency, No Urgency, No Burning, No Hematuria, No Rashes, No Diaphoresis. Appetite is Normal Physical Exam Gen-AAO x 3, NAD, Afebrile, obese, [place]-NCAT, EOMI, PERRLA, Anicteric Sclera, No Posterior Pharyngeal Erythema Neck-Supple, No JVD, No Thyromegaly, No Masses, No LAD, No Bruits Lungs-Clear to Auscultation Bilaterally, No Rales, No Rhonchi, No Wheezing, No Crepitus Chest-No S4, +S1, +S2, No S3, No Murmurs, No Rubs, No Gallops, No Ectopy Abdomen-Soft, Bowel Sounds Present, Non Tender, Non Distended, No Hepatomegaly, No Splenomegaly, No Palpable Masses, No Rebound, No Rigidity, No Guarding Musculoskeletal-Full Range of Motion Bilaterally, No CVAT Extremities-No Cyanosis, No Clubbing, No Edema Nuero-Cranial Nerves II-XII grossly intact, Motor WNL, DTRs WNL, Strength WNL, Non Focal Psych-Normal Mood Admission and Anticipated Discharge Date Admission Date: May 12, 2021 Subjective No new issues overnight Results & Data Results & Data ([facility]) Vital Signs (Past 12 Hours) Vital Signs Temp Pulse Resp BP Pulse Ox 05/15/21 07:15 36.7 C 70 16 103/63 95 05/15/21 04:13 36.9 C 72 18 109/69 96 05/15/21 00:25 36.7 C 84 16 116/73 95
[2021-05-15 08:50] LABS: Partial Thromboplastin Ratio 2.3
[2021-05-15 08:58] LABS: Creatinine Clr Calc Pharmacy 175.3 ml/min
[2021-05-15 09:01] LABS: Partial Thromboplastin Time 59.3 Seconds (21.0-31.0)
[2021-05-15] MEDS: PANTOprazole 40 MG TAB PO SCH (09:08)
[2021-05-15] MEDS: cefTRIAXone SODIUM 2,000 MG in DEXTROSE 5% 50 ML IV SCH (09:08)
[2021-05-15 09:20] LABS: Est GFR (African American) 135.1 ml/min; Est GFR (Non-African American) 116.6 ml/min; Potassium 3.8 mmol/L (3.5-5.1)
[2021-05-15] MEDS: HEPARIN SODIUM/DEXTROSE 25,000 UNITS/500 ML BAG IV SCH ×2 (11:57→22:48)
--- NOTE | 2021-05-15 12:23 | Cardiology Progress Note ---
Date of Service May 15, 2021 Assessment & Plan (1) Pulmonary embolism: Plan: 35-year-old obese male, BMI 50 kg/m, with right lower extremity DVT, bilateral pulmonary embolism, with right ventricular strain pattern on echocardiogram in the setting of recent SARS-CoV-2 pneumonia illness. Would consider this a provoked VTE event given recent SARS-CoV-2 pneumonia. As previously noted, no indication for fibrinolytic therapy given hemodynamic stability with no hypotension. Oxygen saturation is normal, 96% on room air today. No atrial arrhythmias noted on telemetry. Continue transition from heparin to Coumadin. Would recommend outpatient echocardiogram and interval of 1 to 3 months. Request for cardiology follow-up appointment already communicated to our office. Updated patient's significant other, Kecia, by speaker phone at the time of my assessment of the patient. Admission and Anticipated Discharge Date Admission Date: May 12, 2021 Subjective Patient seen in cardiology follow-up. No complaints. Resting comfortably. Heparin infusion ongoing without complication. Telemetry reveals sinus rhythm in the range of 60 to 80 bpm. Physical Exam Physical Exam: Temp Pulse Resp BP Pulse Ox 36.7 C 70 18 115/75 96 05/15/21 11:58 05/15/21 11:58 05/15/21 11:58 05/15/21 11:58 05/15/21 11:58 Constitutional: + obese Respiratory: normal respiratory effort, lungs clear to auscultation Cardiovascular: RRR, no murmur, no edema Neurologic: PERRL, EOMI, accommodation nl, no face palsy, no dysarthria Results & Data ([facility]) Laboratory Results Coagulation 05/15/21 05/15/21 Range/Units 06:43 08:09 PT 10.5 (9.0-12.0) Seconds APTT 59.3 H* (21.0-31.0) Seconds CBC 05/15/21 Range/Units 06:44 WBC 12.77 H (4.8-10.8) K/uL RBC 4.99 (4.7-6.1) M/uL Hgb 13.9 L (14.0-18.0) g/dL Hct 42.0 (42-52) % Plt Count 251 (130-400) K/uL Comprehensive Metabolic Panel 05/15/21 Range/Units 06:43 Sodium 138 (136-145) mmol/L Potassium 3.8 (3.5-5.1) mmol/L Chloride 103 (98-107) mmol/L Carbon Dioxide 25 (21-32) mmol/L BUN 16 (6-23) mg/dl Creatinine 0.80 (0.6-1.4) mg/dl Glucose 96 (70-99(Fasting)) mg/dl Calcium 9.0 (8.5-10.1) mg/dl Intake and Output 05/14/21 05/15/21 05/15/21 22:59 06:59 14:59 Intake Total 355 / 8.333 803.333 / 2028.333 266.667 / 266.667 Output Total Balance 354 / 2023.333 803.333 / 2023.333 266.667 / 266.667 Intake: IV 803.333 / 1023.333 266.667 / 266.667 Heparin Sodium/Dextrose 25,000 803.333 / 953.333 196.667 / 196.667 units In 500 ml @ 2,000 UNITS/ HR 40 mls/hr IV .[id number] FOR[facility]LY [facility], [facility] Rx #:[id number] cefTRIAXone SODIUM 2,000 mg In 70 / 70 Dextrose 5% 50 ml @ 100 mls/hr IV DAILY MELANIE Rx#:[id number] Oral 355 / 1005 Output: # Bowel Movements Other: # Unmeasured Voids 3 1 Weight 145 kg Weight Measurement Method Standing Scale
[2021-05-15] MEDS: WARFARIN SOD 5 MG TAB PO SCH (15:41)
[2021-05-16 07:35] LABS: INR 1.1 (0.9-1.1); Partial Thromboplastin Ratio 2.2; Prothrombin Time 11.2 Seconds (9.0-12.0)
[2021-05-16] MEDS: PANTOprazole 40 MG TAB PO SCH (08:55)
[2021-05-16] MEDS: cefTRIAXone SODIUM 2,000 MG in DEXTROSE 5% 50 ML IV SCH (08:55)
--- NOTE | 2021-05-16 09:59 | Hospitalist Progress Note ---
Date of Service May 16, 2021 Assessment & Plan (1) Elevated troponin: (2) Pulmonary embolism: (3) Pneumonia due to COVID-19 virus: (4) Hypoxia: Plan: Patient is on a Heparin Gtt. Coumadin bridge, DC when INR 2 or greater ROS-No Headache, No Visual Changes, No Nausea, No Vomiting, No Fever, No Chills, No Neck Pain or Stiffness, No Chest Pain, No Palpitations, no SOB, No HOPPER, No Cough, No Sputum, No Wheezing, No Abdominal Pain, No Diarrhea, No Hematemesis, No Hemoptysis, No Unexpected Weight Loss, No Flank pain, No Melena, No Hematochezia, No Frequency, No Urgency, No Burning, No Hematuria, No Rashes, No Diaphoresis. Appetite is Normal Physical Exam Gen-AAO x 3, NAD, Afebrile, obese, [place]-NCAT, EOMI, PERRLA, Anicteric Sclera, No Posterior Pharyngeal Erythema Neck-Supple, No JVD, No Thyromegaly, No Masses, No LAD, No Bruits Lungs-Clear to Auscultation Bilaterally, No Rales, No Rhonchi, No Wheezing, No Crepitus Chest-No S4, +S1, +S2, No S3, No Murmurs, No Rubs, No Gallops, No Ectopy Abdomen-Soft, Bowel Sounds Present, Non Tender, Non Distended, No Hepatomegaly, No Splenomegaly, No Palpable Masses, No Rebound, No Rigidity, No Guarding Musculoskeletal-Full Range of Motion Bilaterally, No CVAT Extremities-No Cyanosis, No Clubbing, No Edema Nuero-Cranial Nerves II-XII grossly intact, Motor WNL, DTRs WNL, Strength WNL, Non Focal Psych-Normal Mood Admission and Anticipated Discharge Date Admission Date: May 12, 2021 Subjective Feeling Fine Results & Data Results & Data ([facility]) Vital Signs (Past 12 Hours) Vital Signs Temp Pulse Pulse Resp BP Pulse Ox 05/16/21 07:06 36.8 C 69 18 129/82 95 05/16/21 03:55 37.2 C 78 18 105/63 95 05/16/21 00:00 83 05/15/21 22:33 37.3 C 80 20 129/87 95
[2021-05-16] MEDS: HEPARIN SODIUM/DEXTROSE 25,000 UNITS/500 ML BAG IV SCH ×2 (11:28→20:52)
[2021-05-16] MEDS: WARFARIN SOD 5 MG TAB PO SCH (17:42)
[2021-05-17 06:51] LABS: INR 1.3 (0.9-1.1); Partial Thromboplastin Ratio 2.5; Prothrombin Time 12.6 Seconds (9.0-12.0)
[2021-05-17 06:53] LABS: Partial Thromboplastin Time 66.6 Seconds (21.0-31.0)
[2021-05-17] MEDS: cefTRIAXone SODIUM 2,000 MG in DEXTROSE 5% 50 ML IV SCH (08:38)
[2021-05-17] MEDS: PANTOprazole 40 MG TAB PO SCH (08:38)
[2021-05-17] MEDS: HEPARIN SODIUM/DEXTROSE 25,000 UNITS/500 ML BAG IV SCH (09:26)
[2021-05-17 13:32] LABS: Partial Thromboplastin Ratio 2.6
[2021-05-17 13:34] LABS: Partial Thromboplastin Time 67.6 Seconds (21.0-31.0)
--- NOTE | 2021-05-17 14:14 | Hospitalist Progress Note ---
Date of Service May 17, 2021 Assessment & Plan (1) Elevated troponin: (2) Pulmonary embolism: (3) Pneumonia due to COVID-19 virus: (4) Hypoxia: Plan: Patient is on a Heparin Gtt. Coumadin bridge, DC when INR 2 or greater ROS-No Headache, No Visual Changes, No Nausea, No Vomiting, No Fever, No Chills, No Neck Pain or Stiffness, No Chest Pain, No Palpitations, no SOB, No HOPPER, No Cough, No Sputum, No Wheezing, No Abdominal Pain, No Diarrhea, No Hematemesis, No Hemoptysis, No Unexpected Weight Loss, No Flank pain, No Melena, No Hematochezia, No Frequency, No Urgency, No Burning, No Hematuria, No Rashes, No Diaphoresis. Appetite is Normal Physical Exam Gen-AAO x 3, NAD, Afebrile, obese, [place]-NCAT, EOMI, PERRLA, Anicteric Sclera, No Posterior Pharyngeal Erythema Neck-Supple, No JVD, No Thyromegaly, No Masses, No LAD, No Bruits Lungs-Clear to Auscultation Bilaterally, No Rales, No Rhonchi, No Wheezing, No Crepitus Chest-No S4, +S1, +S2, No S3, No Murmurs, No Rubs, No Gallops, No Ectopy Abdomen-Soft, Bowel Sounds Present, Non Tender, Non Distended, No Hepatomegaly, No Splenomegaly, No Palpable Masses, No Rebound, No Rigidity, No Guarding Musculoskeletal-Full Range of Motion Bilaterally, No CVAT Extremities-No Cyanosis, No Clubbing, No Edema Nuero-Cranial Nerves II-XII grossly intact, Motor WNL, DTRs WNL, Strength WNL, Non Focal Psych-Normal Mood Admission and Anticipated Discharge Date Admission Date: May 12, 2021 Subjective Feeling Fine Results & Data Results & Data ([facility]) Vital Signs (Past 12 Hours) Vital Signs Temp Pulse Pulse Pulse Resp BP Pulse Ox 05/17/21 12:32 36.5 C 80 20 140/97 95 05/17/21 08:12 37.0 C 72 19 101/68 94 05/17/21 06:21 71 05/17/21 04:00 37.0 C 64 20 119/73 94
[2021-05-17] MEDS ORDERED: ENOXAPARIN 1 MG/KG SQ SCH (14:15)
[2021-05-17] MEDS ORDERED: ENOXAPARIN 150 MG/ML SYR SQ ONE (14:30)
[2021-05-17] MEDS ORDERED: ENOXAPARIN 150 MG/ML SYR SQ SCH (15:00)
[2021-05-17] MEDS: WARFARIN SOD 5 MG TAB PO SCH (16:01)
[2021-05-17] MEDS ORDERED: WARFARIN SOD 2.5 MG TAB PO ONE (18:30)
[2021-05-18] MEDS ORDERED: ENOXAPARIN 150 MG/ML SYR SQ SCH (04:00)
[2021-05-18 06:18] LABS: Hemoglobin 14.2 g/dL (14.0-18.0); Mean Corpuscular Hemoglobin 27.6 pg (25-34); Mean Corpuscular Volume 83.7 fL (80-100); Mean Platelet Volume 10.5 fL (7.4-10.4); Platelet Count 241 K/uL (130-400); RDW Coefficient of Variation 15.1 % (11.5-14.5); RDW Standard Deviation 45.8 fL (36.4-46.3); Red Blood Count 5.14 M/uL (4.7-6.1); White Blood Count 14.72 K/uL (4.8-10.8)
[2021-05-18 06:35] LABS: INR 1.6 (0.9-1.1); Partial Thromboplastin Ratio 1.6; Partial Thromboplastin Time 42.1 Seconds (21.0-31.0); Prothrombin Time 15.3 Seconds (9.0-12.0)
[2021-05-18 06:42] LABS: BUN Creatinine Ratio 15.1 (10-20); Calcium 9.4 mg/dl (8.5-10.1); Creatinine Clr Calc Pharmacy 166.8 ml/min; Est GFR (African American) 131.1 ml/min; Est GFR (Non-African American) 113.1 ml/min; Potassium 3.9 mmol/L (3.5-5.1)
--- NOTE | 2021-05-18 09:27 | Discharge Summary ---
Date of Service May 18, 2021 Admission HPI Per Admitting Provider 35-year-old male who was diagnosed with COVID in end of March, developed pneumonia. At that time, he was treated with dexamethasone. He did fine and got discharged home without any oxygen. The patient says since then he is having ongoing cough .. With exertion, he gets short of breath, but resting it goes away, but yesterday evening at 4:30, he was getting short of breath. Even with resting, he was not getting better. When his girlfriend came and checked his oxygen saturation, it was down and he was brought in here. He was found to be tachycardic, tachypneic. White count was 15 and troponin was 0.7. CTA shows bilateral pulmonary emboli involving the main stem of pulmonary artery and all lobes, associated with right heart strain. No evidence of saddle embolus. Left upper lobe consolidation with additional airspace opacities in the lungs, which are likely related to multifocal infection, pulmonary reflux not excluded. ICU was notified. Currently, the patient seems to be comfortable on 3 liters. Starting on IV heparin. Denies any chest pain. Denies any headache. No blurred visions, no earache, no runny nose, no sore throat, no dizziness, no nausea, no vomiting, no abdominal pain. Normal bowel and bladder movements. No hematuria. No bloody or black stools. No swelling in the legs. Admission Exam Per Admitting Provider GENERAL: The patient is morbidly obese, currently not in acute distress. VITAL SIGNS: Temperature 36.4, pulse 110, respiratory rate 29, blood pressure 134/87, oxygen 97% on 3 liters. HEENT: Pupils equal, round and reactive to light. Oral mucosa moist. NECK: No JVD, no neck masses. CARDIOVASCULAR: S1 and S2 heard. Tachycardia. No murmurs. RESPIRATORY SYSTEM: Normal AP diameter. No accessory muscle use. No wheezing, no crackles. ABDOMEN: Soft, bowel sounds present, nontender, no distention. CENTRAL NERVOUS SYSTEM: Cranial nerves II-XII grossly intact, nonfocal. EXTREMITIES: No edema, no erythema. Principal Diagnosis (1) Elevated troponin: (2) Pulmonary embolism: (3) Pneumonia due to COVID-19 virus: (4) Hypoxia: Discharge Exam see below Discharge Data Allergies Allergy/AdvReac Type Severity Reaction Status Date / Time bee venom protein (honey bee) Allergy Intermediate COLD Verified 05/11/21 22:48 SWEATS/VOMITING Consultations 05/12/21 03:09 Consult French Professor Stat ED Decision to Admit Stat 05/12/21 05:55 Consult French Professor Routine 05/12/21 15:36 Consult Cardiology Routine Current Diagnoses Other pulmonary embolism without acute cor pulmonale (05/12/21) Pneumonia due to coronavirus disease 2019 (05/12/21) Hypoxemia (05/12/21) Other specified abnormalities of plasma proteins (05/12/21) COVID-19 (05/12/21) Other specified health status (05/12/21) Allergies bee venom protein (honey bee) Allergy (Intermediate, Verified 05/11/21 22:48) COLD SWEATS/VOMITING Height/Weight/Isolation Height 5 ft 7 in Weight 144.5 kg Chemistry 05/18/21 05:57 Sodium 134 L Potassium 3.9 Chloride 101 Carbon Dioxide 24 Anion Gap 9 BUN 13 Creatinine 0.86 Glucose 105 H Ordered Studies 05/11/21 21:57 CT angio chest PE protocol Urgent 05/13/21 09:00 US venous doppler [facility] Hospital Course (1) Elevated troponin: (2) Pulmonary embolism: (3) Pneumonia due to COVID-19 virus: (4) Hypoxia: Patient is on a Heparin Gtt. Coumadin bridge, DC today, INR 1.6, will continue bridge at home F/U with PCP, Heme/Onc, Pulm, and Cardio ROS-No Headache, No Visual Changes, No Nausea, No Vomiting, No Fever, No Chills, No Neck Pain or Stiffness, No Chest Pain, No Palpitations, no SOB, No HOPPER, No Cough, No Sputum, No Wheezing, No Abdominal Pain, No Diarrhea, No Hematemesis, No Hemoptysis, No Unexpected Weight Loss, No Flank pain, No Melena, No Hematochezia, No Frequency, No Urgency, No Burning, No Hematuria, No Rashes, No Diaphoresis. Appetite is Normal Physical Exam Gen-AAO x 3, NAD, Afebrile, obese, [place]-NCAT, EOMI, PERRLA, Anicteric Sclera, No Posterior Pharyngeal Erythema Neck-Supple, No JVD, No Thyromegaly, No Masses, No LAD, No Bruits Lungs-Clear to Auscultation Bilaterally, No Rales, No Rhonchi, No Wheezing, No Crepitus Chest-No S4, +S1, +S2, No S3, No Murmurs, No Rubs, No Gallops, No Ectopy Abdomen-Soft, Bowel Sounds Present, Non Tender, Non Distended, No Hepatomegaly, No Splenomegaly, No Palpable Masses, No Rebound, No Rigidity, No Guarding Musculoskeletal-Full Range of Motion Bilaterally, No CVAT Extremities-No Cyanosis, No Clubbing, No Edema Nuero-Cranial Nerves II-XII grossly intact, Motor WNL, DTRs WNL, Strength WNL, Non Focal Psych-Normal Mood Total Time Total Time Spent Total Time Spent (In Minutes): 45 mins Total Time Includes: Examination of the Patient, Discharge Planning, Medication Reconciliation and Communication With Other Providers Discharge Plan Discharge Items Patient Disposition: Home - Self-Care Reason For Visit: SOB Discharge Diagnosis: (1) Elevated troponin: (2) Pulmonary embolism: (3) Pneumonia due to COVID-19 virus: (4) Hypoxia: Condition on Discharge: Good Activity: Resume your previous activity Lifting: Gradually increase as tolerated Bathing: No limitations Sexual Activity: When tolerated Exercise/Sports: Gradually increase as tolerated Driving/Machine Use: No limitations Weightbearing: Full weightbearing Non-emergency contact: Primary Care Provider, Mis Manager, Oncologist and Differential Repairer Call non-emergency contact if: you have any medication questions Follow-up/Referrals: Deuce Bae MD [Physician] - Juan M Jimenez DO [Mis Manager] - (Call for first opening) Braulio Leonard MD [Surgeon] - (Call for first opening) Eddi Shrestha DO [Primary Care Provider] - (Date & Time 05/21/2021 11:20 AM Provider Eddi Shrestha DO Department [facility] ) Diet: Regular Addtl Attending Provider Instructions: You will take Lovenox twice daily until your INR is 2 or greater Pending Studies at Discharge: No Stand-Alone Forms: My [employer], Work/School Release, Smoking Cessation Medications and DC Order Prescriptions: New enoxaparin [Lovenox] 150 mg/mL Syringe 150 mg subcut Q12H Qty: 6 RF: 1 guaifenesin [Mucinex] 600 mg Tablet Extended Release 12hr 1,200 mg PO BID PRN (Reason: cough) Qty: 30 RF: 0 warfarin 2 mg tablet 5 mg PO DAILY Qty: 90 RF: 0 Continued omeprazole 20 mg tablet,delayed release (DR/EC) 20 mg PO DAILY RF: 0 albuterol sulfate [Ventolin HFA] 90 mcg/actuation HFA aerosol inhaler 2 inh inhalation Q6H PRN (Reason: shortness of breath or wheezing) Qty: 6.7 RF: 0 ondansetron 4 mg tablet,disintegrating 4 mg PO Q6H PRN (Reason: nausea and vomiting) Qty: 15 RF: 0 dextromethorphan-guaifenesin [Mucus Relief ER DM-MAX] 60-1,200 mg tablet extended release 12 hr 1 tab PO BID PRN (Reason: cough) Qty: 20 RF: 0 Discontinued naproxen 250 mg tablet 250 mg PO BID PRN (Reason: Pain) RF: 0 Discharge Orders: Discharge Order (Routine); Ordered 05/18/21 Ordered By: Mirza Kirby Admission Data Admit Date/Time: 05/12/21 04:19 Attending Provider: Mirza Kirby Admit Provider: Kvng Beck Primary Care Provider: Eddi Shrestha Other Providers: Deuce Bae ; Raji Balderas ; Misha Chahal ; Xander Thompson ; Michael Foss ; Praneeth Nicole ; Tommy Meza ; Bossman Gonzalez ; Kvng Beck ; Jose Black ; Juan M Jimenez ; Mir Landeros ; Maikel Sanders ; Ryan Rubio ; Chris Holland ; Kelly Lara ; Libia Oh ; Nalini Mejia ; Josesito Artis
[2021-05-18] MEDS: cefTRIAXone SODIUM 2,000 MG in DEXTROSE 5% 50 ML IV SCH (09:30)
[2021-05-18] MEDS: PANTOprazole 40 MG TAB PO SCH (09:30)
--- NOTE | 2021-05-18 10:29 | Cardiology Progress Note ---
Date of Service May 18, 2021 Assessment & Plan (1) Pulmonary embolism: Plan: 35-year-old obese male, BMI 50 kg/m, with right lower extremity DVT, bilateral pulmonary embolism, with right ventricular strain pattern on echocardiogram in the setting of recent SARS-CoV-2 pneumonia illness. Would consider this a provoked VTE event given recent SARS-CoV-2 pneumonia. As previously noted, no indication for fibrinolytic therapy given hemodynamic stability with no hypotension. Oxygen saturation is normal, 97% on room air today. No atrial arrhythmias noted on telemetry. He has been on anticoagulation, with heparin having been initiated when he presented on the evening of 05/12/2021. Patient considered stable for discharge on full anticoagulation dose Lovenox and Coumadin, goal INR 2-3. Patient is already scheduled for outpatient echocardiogram study on 06/22/2021, follow-up visit with Dr. Rubio on 07/01/2021. Admission and Anticipated Discharge Date Admission Date: May 12, 2021 Subjective Mr Gardner is seen in cardiology follow-up of diagnosis of lower extremity DVT, bilateral pulmonary embolism, right ventricular strain pattern on echocardiogram. Patient is feeling well. He describes that the symptoms that prompted him to return to the hospital this admission was abrupt onset of the shortness of breath, and low pulse oximetry reading on his home pulse oximeter. He notes his shortness of breath has improved/resolved. Oxygen saturation this morning 97% on room air. Telemetry reveals sinus rhythm in the 70s. Physical Exam Constitutional: + obese Respiratory: normal respiratory effort, lungs clear to auscultation Cardiovascular: RRR, no murmur, no edema Neurologic: PERRL, EOMI, accommodation nl, no face palsy, no dysarthria Results & Data ([facility]) Vital Signs (Past 12 Hours) Vital Signs Temp Pulse Pulse Resp BP Pulse Ox 05/18/21 07:22 36.6 C 67 18 122/74 97 05/18/21 07:02 73 05/18/21 06:02 36.5 C 66 18 124/83 96 05/18/21 00:00 94 H 05/17/21 23:58 36.7 C 76 16 118/76 96 Laboratory Results Hemoglobin 14.2 Platelet count 241 INR 1.6
[2021-05-18] MEDS ORDERED: WARFARIN SOD 7.5 MG TAB PO SCH (16:00)
== END 2021-05-18 11:29 | disposition home or self-care (01) | DRG 176 ==
LOC: ED 21:39 → 1E 05-12 04:19 → 2S 05-13 22:03
DX: I82.431 Acute embolism and thrombosis of right popliteal vein; U09.9 Post COVID-19 condition, unspecified; E66.01 Morbid (severe) obesity due to excess calories; I26.99 Other pulmonary embolism without acute cor pulmonale; Z68.43 Body mass index [BMI] 50.0-59.9, adult; E87.6 Hypokalemia